=== PATIENT | female | born 1995 | race Caucasian/White ===

== ENCOUNTER 2020-04-21 11:58 | Emergency (ER) | payer OTHER, SELFPAY ==
[2020-04-21 12:10] VITALS: BP 116/71; PULSE 87; RESP 18; TEMP 36.6; O2SAT 98
--- NOTE | 2020-04-21 12:25 | ED.SKABFB ---
HPI - Skin/Abscess/Foreign Bdy General Chief complaint: Skin/Abscess/Foreign Body Stated complaint: breast pain Time Seen by Provider: 04/21/20 12:15 Source: patient and RN notes reviewed Mode of arrival: ambulatory Limitations: no limitations History of Present Illness HPI narrative: Patient presents today complaining of a rash to the left breast since last night. Denies itching or pain. She reports some generalized bilateral breast pain over the past 2 days she has cut down on her milk pumping. She has tried no OTC treatment prior to arrival. Related Data Home Medications Medication Instructions Recorded Confirmed No Home Medications 04/21/20 04/21/20 Allergies Allergy/AdvReac Type Severity Reaction Status Date / Time acetaminophen [From NyQuil] Allergy Itching Verified 04/21/20 13:00 dextromethorphan Allergy Itching Verified 04/21/20 13:00 [From NyQuil] doxylamine [From NyQuil] Allergy Itching Verified 04/21/20 13:00 ibuprofen Allergy Itching Verified 04/21/20 13:01 [From DayQuil Sinus Pressure/Pain] pseudoephedrine [From NyQuil] Allergy Itching Verified 04/21/20 13:00 Review of Systems Review of Systems: Narrative: CONSTITUTIONAL: Denies body aches, fever, chills, or sweats. EYES: Denies visual changes, redness, or discharge. ENT: Denies rhinorrhea, congestion, sore throat, or otalgia. CARDIOVASCULAR: Denies chest pain, palpitations, or edema. RESPIRATORY: Denies cough or dyspnea. GASTROINTESTINAL: Denies abdominal pain, nausea, vomiting, or diarrhea. GENITOURINARY: Denies dysuria or hematuria. SKIN: Denies iitching, or wounds. Bilateral breast pain, left breast rash MUSCULOSKELETAL: Denies back pain, joint pain, or myalgia. NEUROLOGIC: Denies headache, numbness, tingling, or weakness. PSYCH: Denies depression or anxiety. [facility] Past Medical History Medical History (Updated 04/21/20 @ 12:28 by Perla Allison, [facility], ) PCOS (polycystic ovarian syndrome) Family History Family History Other Unknown family medical history Social History Social History Smoking status: Never smoker Second hand tobacco smoke exposure: No Substance use: never Spiritual care concerns: No Comments At time of signature, I have reviewed and agree with nursing past medical, surgical, social and family history unless otherwise noted. Please see nursing chart for further information. There is no relevant family history pertinent to the presenting complaint Exam Narrative: Exam Narrative: GENERAL: Well-appearing, well-nourished, and in no acute distress. HEAD: Normocephalic, atraumatic. EYES: EOMI. No redness or drainage. Conjunctivae normal. ENT: Mucous membranes pink and moist. NECK: Normal AROM. CHEST: No respiratory distress. 3 cm round area of faintly erythematous maculopapular rash to the left upper quadrant of the area of the areola and surrounding skin. Nontender. No induration or fluctuance. Right breast normal. No nipple discharge bilaterally. EXTREMITIES: Normal range of motion. No edema. SKIN: Warm, dry, no rash. Capillary refill normal. Normal skin turgor. NEURO: No focal deficits. Alert and oriented x3. Gait steady. PSYCH: Normal affect. No signs of depression or anxiety. Course Vital Signs Vital signs: Vital Signs Temperature 97.8 F 04/21/20 12:10 Pulse Rate 87 04/21/20 12:10 Respiratory Rate 18 04/21/20 12:10 Blood Pressure 116/71 04/21/20 12:10 Pulse Oximetry 98 04/21/20 12:10 Temperature 97.8 F 04/21/20 12:10 Pulse Rate 87 04/21/20 12:10 Respiratory Rate 18 04/21/20 12:10 Blood Pressure 116/71 04/21/20 12:10 Pulse Oximetry 98 04/21/20 12:10 Reviewed MDM - Skin/Abscess/Foreign Bdy Differential Diagnosis Differential diagnosis: Likely abscess of skin or subcutaneous tissue, urticaria, herpes zoster, al
== END 2020-04-21 12:30 | disposition home or self-care (01) ==
PROVIDERS: Emergency Provider Nurse Practitioner; PCP Physician Assistant
DX: L30.9 Dermatitis, unspecified (principal); E28.2 Polycystic ovarian syndrome
CPT/HCPCS: 99211; G0463

== ENCOUNTER 2023-08-02 11:40 | Observation (INO) | payer BC, OTHER, SELFPAY ==
[2023-08-02 12:11] VITALS: BP 110/64; PULSE 122; RESP 18; TEMP 36.5; BMI 38.3
[2023-08-02 12:28] LABS: Appearance Urine Clear (Clear); Bacteria Urine Rare /hpf; Bilirubin Urine Negative (Negative); Blood Urine Negative (Negative); Color Urine Yellow (Yellow); Glucose Urine UA Negative (Negative); Ketones Urine Negative (Negative); Leukocyte Esterase Ur Trace LEU/UL (Negative); Nitrate Urine Negative (Negative); Non Pathogenic Casts 0-2; Protein Urine 1+ mg/dL (Negative); RBC Urine 0-2 /hpf (0-2); Squamous Epithelial Cell Urine Moderate /hpf (Few); Urobilinogen Urine 0.2 mg/dL (<2.0)
[2023-08-02 12:30] VITALS: BP 111/67; PULSE 118
[2023-08-02 12:30] LABS: Add Urine Microscopic? YES
--- NOTE | 2023-08-02 12:33 | OBADM ---
This patient, Kitty Montilla, admitted to the OB room 116 for observation. Patient/family oriented to hospital policies and general routines including ID bracelet, bed and alarms, visiting hours, pain management, procedures, bathroom and other care routines, personal items, smoking policy, room service/diet, and visiting hours. Patient/Family are encouraged to report perceived risks to care and to ask questions if they do not understand what they are told or what they should do.
[2023-08-02 13:00] VITALS: BP 97/50; PULSE 114
[2023-08-02] MEDS: CYCLOBENZAPRINE HCL 10 MG TABLET PO (13:14)
--- NOTE | 2023-08-05 07:56 | PM.OBTRLD ---
OB - Triage/Final Diagnosis Visit Information Date of evaluation: 08/02/23 Reason for evaluation: threatened labor (back pain) Comments/Additional reasons for admission: I have assessed the risk for this patient, Kitty Montilla, and determined that she would benefit from observation care. Evaluation Laboratory results: Laboratory Tests 08/02/23 12:15 Urine Color Yellow Urine Appearance Clear Urine pH 7.0 Ur Specific Cherry Log 1.010 Urine Protein 1+ H Urine Glucose (UA) Negative Urine Ketones Negative Ur Blood (Man) Negative Urine Nitrate Negative Urine Bilirubin Negative Urine Urobilinogen 0.2 Leukocyte Esterase Rfl Trace H Urine RBC 0-2 Urine WBC 6-10 H Ur Squamous Epith Cells Moderate Urine Bacteria Rare Urine Casts 0-2 Comments: Tracing reassuring. No evidence of labor.
== END 2023-08-02 14:17 | disposition home or self-care (01) ==
PROVIDERS: Advanced Practice Midwife; Admitting Provider Obstetrics & Gynecology; PCP Physician Assistant; Visit Provider Obstetrics & Gynecology
DX: O47.03 False labor before 37 completed weeks of gestation, third trimester (principal); Z3A.32 32 weeks gestation of pregnancy
CPT/HCPCS: 81001; 87086; A9270; G0378; G0379

== ENCOUNTER 2023-09-21 15:45 | Outpatient (CLI) | payer BC, SELFPAY ==
[2023-09-21 16:18] LABS: Hemoglobin 10.6 g/dL (12.0-15.0); Mean Corpuscular HGB Conc 31.2 g/dl (32-36); Mean Corpuscular Hemoglobin 25.1 pg (26-34); Mean Corpuscular Volume 80.6 fl (80-100); Mean Platelet Volume 12.1 fl (7.4-10.4); Platelet Count Result 227 k/mm3 (150-375); Red Blood Count 4.22 M/mm3 (4.2-5.4); Red Cell Distribution Width 15.6 % (11.5-14.5); White Blood Count 8.8 K/mm3 (4.5-10.0)
[2023-09-22 13:05] LABS: Rapid Plasma Reagin Non-Reactive (NonReactive)
== END 2023-09-21 15:46 | disposition home or self-care (01) ==
LOC: ANHLAB 15:47
PROVIDERS: PCP Physician Assistant; Visit Provider Obstetrics & Gynecology
DX: Z01.818 Encounter for other preprocedural examination (principal)
CPT/HCPCS: 36415; 85027; 86592; 86850; 86900; 86901

== ENCOUNTER 2023-09-22 09:32 | Inpatient (IN) | payer BC, SELFPAY ==
[2023-09-22] VITALS (64 sets, daily range): BP systolic 91–137; BP diastolic 50–100; PULSE 27–151; RESP 15–20; TEMP 36.2–37.2; O2SAT 73–100; BMI 38.9
--- NOTE | 2023-09-22 09:59 | PC.NURSE ---
Ok to give Zofran earlier than ERAS protocol per anesthesia
[2023-09-22] MEDS: ONDANSETRON INJ 4 MG/2 ML VIAL IV PUSH (10:15)
[2023-09-22] MEDS: ACETAMINOPHEN 500 MG TABLET 1000 MG PO (10:15)
[2023-09-22] MEDS: LACTATED RINGERS 1,000 ML 125 ML IV CONT ×2 (10:26→12:29)
--- NOTE | 2023-09-22 10:32 | ADMGEN ---
This patient, Kitty Montilla, was admitted to Labor/Delivery/Recovery 120-00. Patient/family oriented to hospital policies and general routines including ID bracelet, bed and alarms, visiting hours, pain management, procedures, bathroom and other care routines, personal items, smoking policy, room service/diet, and visiting hours. Information on how to activate the Rapid Response Team has been discussed. Patient/Family are encouraged to report perceived risks to care and to ask questions if they do not understand what they are told or what they should do.
--- NOTE | 2023-09-22 11:39 | PM.IMHP ---
H&P: HPI History of Present Illness Date/Time: 09/22/23 11:39 Chief Complaint: Here for c section. Narrative: 27 y/o at 39 2/7 weeks with prior , here for repeat . Good movement. GBS pos. 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 Review of Systems Review of Systems: All systems reviewed & are unremarkable except as noted in HPI and below PMFSH Past Medical History Medical History (Updated 09/22/23 @ 11:42 by Austin Pendleton MD) PCOS (polycystic ovarian syndrome) Surgical History Surgical History (Updated 09/22/23 @ 11:42 by Austin Pendleton MD) History of delivery Family History Family History Other Unknown family medical history Social History Social History Smoking status: Never smoker Second hand tobacco smoke exposure: No Substance use: never Do You Feel Safe in your Home?: Yes Lack of Transportation: No Lack of Food: Never True Current Housing: I Have Housing Concerned About Future Housing: No Difficulty Paying Gas/Electric Bills: No Difficulty Paying for Meds: No Currently Unemployed: No Education: Bachelor's Degree Difficulty w/ Childcare or Family Care: No Spiritual care concerns: No Meds Home Medications and Allergies Home Medications Medication Instructions Recorded Confirmed Type vit no.95-ferrous 1 tablet PO DAILY 08/02/23 09/14/23 History fumarate 28 mg-folic acid 800 mcg tablet () Allergies Allergy/AdvReac Type Severity Reaction Status Date / Time dextromethorphan Allergy Itching Verified 09/22/23 10:29 [From NyQuil] doxylamine [From NyQuil] Allergy Itching Verified 09/22/23 10:29 pseudoephedrine [From NyQuil] Allergy Itching Verified 09/22/23 10:29 Vital Signs Vital Signs - 24 hr 09/22/23 10:00 09/22/23 10:15 09/22/23 10:31 Pulse Rate 97 99 92 Blood Pressure 130/79 137/73 126/75 Oxygen Delivery 09/22/23 10:45 09/22/23 11:00 09/22/23 11:15 Pulse Rate 81 85 78 Blood Pressure 120/69 115/72 115/71 Oxygen Delivery 09/22/23 11:30 09/22/23 10:32 Pulse Rate 74 Blood Pressure 110/60 Oxygen Delivery Room Air Exam Const: Orientation/consciousness: patient oriented x3 Other: Well-developed, well-nourished female in no acute distress. Neck: Thyroid: thyroid normal Lymphatic: no lymphadenopathy noted (in neck, axilla or inguinal nodes) Resp: Effort & Inspection: normal respiratory effort Auscultation: clear to auscultation bilaterally Cardio: Rate: regular rate Rhythm: regular rhythm Heart sounds: S1 normal heart sound present and S2 normal heart sound present GI: Other: ABD: Soft, nontender, nondistended, gravid. FHR auscultated. No guarding or rebound tenderness. No hepatosplenomegaly. : General: Yes no CVA tenderness Other: Cervix cl/th Back/Spine/Pelvis: Back: no CVA tenderness Skin: General skin exam: normal color and no rashes or lesions noted Neuro: General: patient oriented x3 Extrem: Other: Extremities: nontender with no edema Psych: Mental Status: mental status grossly normal Affect: normal affect Assessment and Plan Assessment and plan (1) Term : Code(s): Z34.90 - Encounter for supervision of normal , unspecified, unspecified trimester Status: Acute Assessment and Plan: A: IUP at 39 2/7 weeks with prior , desiring repeat. GBS pos. P: Offered repeat . She understands risks of surgery to include risks of anesthesia, risks of pain, infection, bleeding, blood products, thromboembolic phenomena and damage to adjacent structures such as bowel, bladder, ureters, blood vessels and nerves. She understands all these risks and elects to proceed with surgery. Plan Ancef preoperatively. (2) GBS (group B Streptococcus carrier), +RV
--- NOTE | 2023-09-22 11:53 | P.PNAN_ITS ---
Anes - Eval Pre Procedure Procedure: Operation Date: 09/22/23 12:00 Proposed Procedures p Repeat Section - Austin Pendleton MD Date/Time: 09/22/23 11:53 Surgeon: Helder Preop Diagnosis: Previous c section Pre Op Diagnosis: C/S Patient Data Age: 27 Gender: F Height: 1.65 m Weight: 106 kg Last Vital Signs Pulse 74 09/22/23 11:30 BP 110/60 09/22/23 11:30 O2 Del Method Room Air 09/22/23 10:32 Allergies Allergy/AdvReac Type Severity Reaction Status Date / Time dextromethorphan Allergy Itching Verified 09/22/23 10:29 [From NyQuil] doxylamine [From NyQuil] Allergy Itching Verified 09/22/23 10:29 pseudoephedrine [From NyQuil] Allergy Itching Verified 09/22/23 10:29 Home Medications Medication Instructions Recorded Confirmed Type vit no.95-ferrous 1 tablet PO DAILY 08/02/23 09/14/23 History fumarate 28 mg-folic acid 800 mcg tablet () Patient hx anesthesia problems: none Family hx anesthesia problems: none Results Review: All pre-operative results and documents have been reviewed as part of the pre- operative evaluation. [facility] Past Medical History Medical History (Updated 09/22/23 @ 11:56 by Pacheco Yanez Jr., CRNA) ADHD IBS (irritable bowel syndrome) Obesity PCOS (polycystic ovarian syndrome) Sciatica Term Surgical History Surgical History History of delivery Family History Family History Other Unknown family medical history Social History Social History Smoking status: Never smoker Second hand tobacco smoke exposure: No Substance use: never Do You Feel Safe in your Home?: Yes Lack of Transportation: No Lack of Food: Never True Current Housing: I Have Housing Concerned About Future Housing: No Difficulty Paying Gas/Electric Bills: No Difficulty Paying for Meds: No Currently Unemployed: No Education: Bachelor's Degree Difficulty w/ Childcare or Family Care: No Spiritual care concerns: No Exam Day of Procedure 09/22/23 11:53 Patient weight: obese
--- NOTE | 2023-09-22 12:24 | WPDANESEPPF ---
Anes - Initial Pre Proc Eval Procedure: Operation Date: 09/22/23 12:00 Proposed Procedures p Repeat Section - Austin Pendleton MD Date/Time: 09/22/23 12:24 Surgeon: Austin Pendleton MD Pre Op Diagnosis: C/S Patient Data Age: 27 Gender: F Height: 1.65 m Weight: 106 kg Last Vital Signs Pulse 81 09/22/23 12:16 BP 118/64 09/22/23 12:16 O2 Del Method Room Air 09/22/23 10:32 Allergies Allergy/AdvReac Type Severity Reaction Status Date / Time dextromethorphan Allergy Itching Verified 09/22/23 10:29 [From NyQuil] doxylamine [From NyQuil] Allergy Itching Verified 09/22/23 10:29 pseudoephedrine [From NyQuil] Allergy Itching Verified 09/22/23 10:29 Home Medications Medication Instructions Recorded Confirmed Type vit no.95-ferrous 1 tablet PO DAILY 08/02/23 09/14/23 History fumarate 28 mg-folic acid 800 mcg tablet () Patient hx anesthesia problems: none Family hx anesthesia problems: none Results Review: All pre-operative results and documents have been reviewed as part of the pre-operative evaluation. [facility] Past Medical History Medical History (Updated 09/22/23 @ 11:56 by Pacheco Yanez Jr., CRNA) ADHD IBS (irritable bowel syndrome) Obesity PCOS (polycystic ovarian syndrome) Sciatica Term Surgical History Surgical History History of delivery Family History Family History Other Unknown family medical history Social History Social History Smoking status: Never smoker Second hand tobacco smoke exposure: No Substance use: never Do You Feel Safe in your Home?: Yes Lack of Transportation: No Lack of Food: Never True Current Housing: I Have Housing Concerned About Future Housing: No Difficulty Paying Gas/Electric Bills: No Difficulty Paying for Meds: No Currently Unemployed: No Education: Bachelor's Degree Difficulty w/ Childcare or Family Care: No Spiritual care concerns: No Anes - Eval Final PreProcedure Day of Procedure 09/22/23 12:24 Patient weight: obese Heart: regular rate and rhythm Lungs: clear to auscultation Airway: Mallampati scale class II Neurological: alert and oriented Last oral intake: >/= 8 hours ASA classification: II Emergent: no Anesthetic plan: proceed Anesthesia type and monitoring: regional spinal Results Review: All pre-operative results and documents have been reviewed as part of the pre-operative evaluation. Pt reports some brief nausea and vomiting after epidural dosed for C section w previous delivery. Informed Consent: The patient's anesthetic plan and its attendant risks and benefits were discussed with the patient/family/POA. Questions were solicited and answers provided to the satisfaction of the patient/family/POA.
[2023-09-22] MEDS: FAMOTIDINE 20 MG/2 ML VIAL IV PUSH (12:39)
--- NOTE | 2023-09-22 12:41 | WPDHPUPDATE1 ---
History and Physical Update Update Date/Time: 09/22/23 12:41 History and Physical has been reviewed, including an updated exam of the patient. There are NO changes in the patient's condition. Risks, benefits, and alternatives have been discussed and questions answered. Patient agrees to proceed with procedure.
--- NOTE | 2023-09-22 13:58 | W.PM.OBCSD ---
OB - Delivery Note Procedure Delivery date: 09/22/23 Pre-op diagnosis: Positive Group B Strep (GBS) and Previous Delivery Post-op Diagnosis: Same Induction method: None Delivery monitor: External FHT and External Uterine Procedure Performed: Repeat Surgeon: Austin Pendleton MD Anesthesia type: Spinal Description of Procedure/Findings: Findings: Normal-appearing uterus, tubes and ovaries. Techniques: The patient was taken to the operating room where she was prepared and draped in the usual sterile fashion in dorsal supine position with a leftward tilt. She received cefazolin preoperatively. Spinal anesthesia was found to be adequate. A Pfannenstiel skin incision was made along the previous scar line and was carried through to the underlying layer of the fascia. The fascia was incised in the midline and the incision was extended laterally. The fascia was dissected free of the underlying rectus muscles. The rectus muscles were in the midline. The peritoneum was identified, tented up and entered sharply. The peritoneal incision was extended superiorly and inferiorly with good visualization of the bladder. The bladder blade was placed. The vesicouterine peritoneum was identified, tented up and entered sharply. The incision was extended laterally and the bladder flap was developed. The bladder blade was replaced. The uterus was then incised sharply in a transverse fashion along the lower uterine segment. The incision was extended laterally. The 's head was delivered atraumatically to the sterile field, followed by the body. The nose and mouth were bulb suctioned. After a delay, the cord was clamped and cut. The infant was handed off the field. Cord blood was collected. The placenta was removed manually and was passed off the field. The uterus was exteriorized and cleared of all clots and debris. The uterine incision was reapproximated using 0 Monocryl in a running, locked fashion. Excellent hemostasis resulted as did excellent reapproximation of the normal anatomy. The uterus was returned the abdomen. The pelvis was irrigated copiously with warmed normal saline. Rigorous hemostasis was assured. The fascial layer was reapproximated using 0 Vicryl in a running fashion. The skin was closed with a running, subcuticular stitch of 4 0 Vicryl. Dermaflex was applied externally. Sponge, lap, needle and instrument counts were correct. The patient was taken to the recovery room in stable condition. The infant went to the nursery in stable condition. I was present and scrubbed the entire procedure. Specimen: Yes (cord blood) Estimated Blood Loss: 520 Drains: Yes (chowdary) Packing: No Pathology: Yes (cord blood) Complications: None Condition: Stable Disposition: PACU [place] Baby Date of : 09/22/23 Time of : 13:17 Weeks of gestation at delivery: 39 Infant gender: Female Weight (pounds): 7 Weight (ounces): 2 presentation: vertex Placenta delivery description: Manual Removal and Normal Configuration Cord Vessel Description: 3 Vessels and Delayed Cord Clamping score one minute: 9 score five minutes: 9
--- NOTE | 2023-09-22 14:00 | PM.OBDSVD ---
DS: Admitting Diagnosis Discharge Date 09/24/23 Admitting Diagnosis IUP at 39 2/7 weeks Prior GBS colonization DS: Discharge Diagnosis Discharge Diagnosis (1) delivery delivered: Code(s): O82 - Encounter for delivery without indication Status: Acute (2) GBS (group B Streptococcus carrier), +RV culture, currently : Code(s): O99.820 - Streptococcus B carrier state complicating Status: Acute OB - DS: Summary OB Procedures : None OB Procedures Intrapartum: and GBS prophylaxis OB Procedures: : None Peripartum Data Procedures: Procedures Operation Date: 09/22/23 12:00 <No data on this case meets the specified criteria> Time Spent with Patient Time attestation: Total time spent providing and/or coordinating discharge services: Discharge Plan Discharge Attending physician on discharge: Austin Pendleton Discharging Clinician: Austin Pendleton Patient Disposition: Home, Self-Care Activity: may shower, may drive after 2 weeks and pelvic rest Diet: regular Wound Care Instructions: incision open to air Discharge Instructions: Call or return if temperature above 100.4? F, increased abdominal pain, increased vaginal bleeding or any new problems. Stand Alone Forms: General Discharge Information Follow-up/Referrals: Austin Pendleton MD [Physician] - 4 Weeks Discharge Medications: New ibuprofen 600 mg tablet 600 mg PO Q6H PRN (Reason: cramps) Qty: 30 0RF hydrocodone-acetaminophen 5-325 mg tablet 1 - 2 tablet PO Q6H PRN (Reason: pain) Qty: 30 0RF Continued PNV cmb#95-ferrous fumarate-FA [] 28 mg iron- 800 mcg Tablet 1 tablet PO DAILY Date of admission: 09/22/23 09:32 Primary Care Provider: AnivalRoss Admitting Provider: Austin Pendleton Attending physician on admission: Austin Pendleton Condition: Stable
[2023-09-22] MEDS: fentaNYL CITRATE INJ (*CRX) 100 MCG/2 ML VIAL 25 MCG IV PUSH ×2 (14:59→15:52)
[2023-09-22] MEDS: OXYTOCIN 30 UNITS/NS 500 ML 30 UNITS/500 ML BAG 125 UNITS IV CONT (16:00)
--- NOTE | 2023-09-22 16:44 | OBPPTRN ---
Patient transferred to post room # 281 via stretcher. Support person present. Oriented to unit, room, information board, rooming in, admission packet and security measures. Patient verbalizes understanding.
[2023-09-22] MEDS: DOCUSATE SODIUM 100 MG CAPSULE PO (17:24)
[2023-09-22] MEDS: HYDROcodone/acetaminophen (*CRX) 10-325 MG TABLET 1 TAB PO ×2 (17:24→23:40)
[2023-09-22] MEDS: ACETAMINOPHEN 325 MG TABLET 650 MG PO (17:25)
[2023-09-22] MEDS: KETOROLAC 15 MG/ML VIAL (*BKC) IV PUSH ×2 (17:27→23:40)
[2023-09-22] MEDS: HYDROcodone/acetaminophen (*CRX) 5-325 MG TABLET 1 TAB PO (20:50)
[2023-09-22] MEDS: DEXTROSE 5%/0.45% SOD CHL 1,000 ML 125 ML IV CONT (20:50)
[2023-09-23] MEDS: HYDROcodone/acetaminophen (*CRX) 10-325 MG TABLET 1 TAB PO ×3 (04:05→15:45)
[2023-09-23 04:15] VITALS: BP 112/65; PULSE 84; RESP 20; TEMP 37; O2SAT 97
[2023-09-23 05:18] LABS: Basophils Absolute Auto 0.1 K/mm3 (0.0-0.1); Basophils Percent Auto 0.6 % (0.2-1.2); Eosinophils Absolute Auto 0.1 K/mm3 (0-0.3); Eosinophils Percent Auto 1.2 % (0-4.4); Hematocrit 28.3 % (37.0-47.0); Hemoglobin 8.9 g/dL (12.0-15.0); Immature Granulocyte Absolute 0.03 K/mm3 (0.00-0.031); Immature Granulocyte Percent A 0.4 % (0-0.5); Lymphocytes Absolute Auto 1.49 K/mm3 (0.9-3.2); Mean Corpuscular HGB Conc 31.4 g/dl (32-36); Mean Corpuscular Hemoglobin 25.6 pg (26-34); Mean Corpuscular Volume 81.3 fl (80-100); Mean Platelet Volume 12.5 fl (7.4-10.4); Monocytes Absolute Auto 0.8 K/mm3 (0.1-0.6); Monocytes Percent Auto 9.2 % (2.6-8.5); Neutrophils Absolute Auto 5.9 K/mm3 (1.3-6.7); Neutrophils Percent Auto 70.6 % (45.5-73.1); Platelet Count Result 169 k/mm3 (150-375); Red Blood Count 3.48 M/mm3 (4.2-5.4); Red Cell Distribution Width 15.9 % (11.5-14.5); White Blood Count 8.3 K/mm3 (4.5-10.0)
--- NOTE | 2023-09-23 07:27 | WPDANLDPN2 ---
Anes-Prog Note L&D Date/Time: 09/23/23 07:27 Comfortable throughout: section Neuraxial method: spinal Epidural/Spinal procedure site: clean & non-tender Neuro status: Neuro function grossly intact. Cardiovascular status: normal Respiratory status: normal Airway patency: baseline Mental status: baseline Post-Op hydration status: normal Vital Signs: Last Vital Signs Temp 37.0 C 09/23/23 04:15 Pulse 84 09/23/23 04:15 Resp 20 09/23/23 04:15 BP 112/65 09/23/23 04:15 Pulse Ox 97 09/23/23 04:15 O2 Del Method Room Air 09/22/23 16:05 Pain score (VAS): 210 I/O: Intake & Output 09/22/23 09/22/23 09/23/23 15:59 23:59 07:59 Intake Total 256.3 0 3000 Output Total 216 718 1975 Balance -263.7 -250 450 Post-procedural complaints: none Patient feedback: Patient satisfied with anesthetic care.
--- NOTE | 2023-09-23 07:28 | WPDANLDNPN2 ---
Anes-Prog Note L&D-Neuraxial Date/Time: 09/23/23 07:28 Neuraxial medications: intrathecal PF morphine Opiod-related complaints: pruritis mild, no treatment Patient feedback: Patient satisfied with post-operative pain management.
[2023-09-23 07:50] VITALS: BP 98/54; PULSE 91; RESP 16; TEMP 36.6; O2SAT 99
[2023-09-23] MEDS: KETOROLAC 15 MG/ML VIAL (*BKC) IV PUSH ×2 (08:25→14:44)
[2023-09-23] MEDS: DOCUSATE SODIUM 100 MG CAPSULE PO ×2 (08:26→15:45)
[2023-09-23] MEDS: SIMETHICONE 80 MG TAB.CHEW PO ×2 (08:27→12:35)
[2023-09-23] MEDS: MULTIVIT/MIN/PREN/FOL AC/IRON TABLET 1 TAB PO (08:27)
[2023-09-23] MEDS: POLYSACCHARIDE IRON COMPLEX 150 MG CAPSULE PO ×2 (08:27→15:45)
[2023-09-23] MEDS: LANOLIN (LANSINOH) 7.5 GM CREAM 1 APPLIC TOPICAL (08:27)
--- NOTE | 2023-09-23 08:58 | PM.OBPNVD ---
OB - PN: Subj Subjective Date/time seen: 09/23/23 08:58 Narrative: Pain OK. Tolerating diet. OB - PN: Obj Data Labs 09/23/23 03:45 Labs: Laboratory Results - last 24 hr 09/23/23 03:45 WBC 8.3 RBC 3.48 L Hgb 8.9 L Hct 28.3 L MCV 81.3 MCH 25.6 L MCHC 31.4 L RDW 15.9 H Plt Count 169 MPV 12.5 H Immature Gran % (Auto) 0.4 Neut % (Auto) 70.6 Lymph % (Auto) 18.0 L [place] % (Auto) 9.2 H Eos % (Auto) 1.2 Baso % (Auto) 0.6 Lymph # (Auto) 1.49 [place] # (Auto) 0.8 H Eos # (Auto) 0.1 Baso # (Auto) 0.1 Abs Immat Gran (auto) 0.03 Absolute Neuts (auto) 5.9 Absolute Nucleated RBC 0.000 Nucleated RBC % 0.0 OB - PN A/P Plan day: 1 Comments: A: POD#1, doing well. P: Routine care. Exam Narrative: AVSS I/O OK ABD soft, nontender, fundus firm. Incision c/d/i. EXT nontender
[2023-09-23] MEDS: LIDOCAINE 5% PATCH 1 PATCH TRANSDERM (10:12)
--- NOTE | 2023-09-23 12:28 | PC.NURSE ---
[id number] Introductions were made, then consulted with patient to assess needs related to after a request. Mother led the conversation with her?plans to feed?her , the?experience so far and a history of a bad experience with a LC with her first child. Mother requested RN LC not to touch her or her related to that experience. Encouraged understanding of the benefits of skin to skin (demonstrating unwrapping and placing upright on her chest), stimulating with massage touch, changing positions to encourage wakefulness, how to watch for early feeding cues, responsive feeding, feeding on demand (aiming for 8-12 times in 24 hours, about every 2-3 hours), milk production, hand expression, building/maintaining a milk supply, duration of feeding, signs of adequate intake/output and how to record on the feeding sheet. Demonstrated a hand expression technique using a tool to mother that might produce more colostrum and mother demonstrated understanding. Mother works well with her infant with encouragement and education. Mother is attempting to latch infant to her right breast and is pumping her left breast with a portable personal pump. Encouraged mother to switch to the left breast after she hand expressed large drops of colostrum. Mother independently latched her infant to the left breast in cradle position. Education given to the mother of how to visualize the suckling (with good rocking jaw motion), swallows (dropping of the lower jaw) and how to listen for drinking at the breast (the ka sound)which demonstrated. was able to maintain latch without pain to mother protecting the nipple with optimal positioning and latching. Mother voiced understanding of skin to skin, stimulating with massage touch, responsive feedings, hand expressed colostrum, talking to infant to encourage if it has been 2 -2.5 hours since the start of the last , to call if infant does not latch, or if there is discomfort with . Resources used for education were facilitated with the tool. Inpatient/outpatient resources provided with name written on the communication board. Parents voiced understanding of information, demonstrated learning and will call if there is a request for assistance. Reported to the Primary RN.
[2023-09-23] MEDS: HYDROcodone/acetaminophen (*CRX) 5-325 MG TABLET 1 TAB PO ×2 (12:35→20:51)
[2023-09-23] MEDS: ACETAMINOPHEN 325 MG TABLET 650 MG PO (14:44)
[2023-09-23 19:45] VITALS: BP 113/60; PULSE 102; RESP 16; TEMP 36.3; O2SAT 99
[2023-09-23] MEDS: IBUPROFEN 600 MG TABLET PO (20:49)
[2023-09-24] MEDS: HYDROcodone/acetaminophen (*CRX) 5-325 MG TABLET 1 TAB PO ×3 (02:05→19:45)
[2023-09-24] MEDS: IBUPROFEN 600 MG TABLET PO ×3 (04:57→17:03)
--- NOTE | 2023-09-24 08:42 | PM.OBPNVD ---
OB - PN: Subj Subjective Date/time seen: 09/24/23 08:42 Narrative: Pain OK. Tolerating diet. Would like to go home. OB - PN: Obj Data Labs 09/23/23 03:45 OB - PN A/P Plan Comments: A: POD#2, doing well. P: Home to f/u 4 weeks. Exam Narrative: AVSS ABD soft, nontender, fundus firm. Incision c/d/i. EXT nontender
[2023-09-24 08:50] VITALS: BP 124/74; PULSE 103; RESP 18; TEMP 37; O2SAT 98
[2023-09-24] MEDS: POLYSACCHARIDE IRON COMPLEX 150 MG CAPSULE PO ×2 (09:32→17:02)
[2023-09-24] MEDS: MULTIVIT/MIN/PREN/FOL AC/IRON TABLET 1 TAB PO (09:33)
[2023-09-24] MEDS: DOCUSATE SODIUM 100 MG CAPSULE PO ×2 (09:33→17:02)
[2023-09-24] MEDS: SIMETHICONE 80 MG TAB.CHEW PO ×3 (09:33→17:02)
[2023-09-24] MEDS: ACETAMINOPHEN 325 MG TABLET 650 MG PO ×2 (11:07→17:03)
--- NOTE | 2023-09-24 12:53 | PC.NURSE ---
[id number] Consulted with mother concerning needs and she shared her ability to independently latch infant optimally without pain. Mother is feeding appropriately for growth of infant and understands stimulating to eat if needed. Infant has had appropriate feedings in the last 24 hours meets the outcomes for weight, output, blood sugar and jaundice at this time with exception to a period of 6 hours without . Discussed concerns with weight, blood sugar, jaundice and the milk supply when misses two feedings. Reminded parents to breastfeed infant on demand not letting infant go past 3 hours during the day and 4 hours at night one time in a 24 hour period. Mother has been attempting to latch to the right breast and was unable to get to wake up so, she unwrapped and undressed , then mother independently latched her infant to the right breast with cradle positioning. Then after infant detached mother latched to the left breast. Infant demonstrated rocking jaw motion, dropping of the jaw indicating swallowing about every 3rd suck. Mother denies pain and nipples are not misshaped. Mother acknowledges the difference of non-nutritive vs nutritive . Reinforced understanding of milk production, transition of milk, signs of adequate intake, transition of stool, prevention/relief of engorgement, plugged ducts, mastitis, responsive watching for feeding cues, the different methods of stimulating to breastfeed 1-3 hours after the start of the last feeding, community resources, and when to call a provider using the resource of the feeding sheet along with the mom and baby guide. Mother voiced understanding of the information shared, is confident to continue effectively her at home, when to call for assistance, denies any additional assistance or education at this time. Reported to the Primary RN. Reported to RN that infant had a blood sugar checked after Information Technology Officer assessment and resulted 51mg/dl. Dr. Cardoso ordered gel and formula feeding. PP blood sugar resulted 84mg/dl. [id number] Purposefully rounded to assess for concerns and mothers mental health after the supplementation as that is not something she wanted to do. Mother is a terms with the needs of the baby being met. We reviewed frequent and hand expression. Mother is pumping with her hands free pump and is able to collect more milk with hand expression. A cup was provided to collect breast milk. Mother demonstrated a better technique of removing more milk after education reviewed. 1130 - Mother is [id number] with her requesting a blood sugar prior to . Blood sugar results at 80mg/dl. Mother encouraged to call for assistance with , difficulty waking to breastfeed, or pain and no swallowing with . Reported results to the Primary RN.
[2023-09-24] MEDS: HYDROcodone/acetaminophen (*CRX) 10-325 MG TABLET 1 TAB PO (12:59)
--- NOTE | 2023-09-24 15:05 | PC.NURSE ---
1315 - Purposefully rounded and mother shared she breastfed her infant independently for 40 min without pain at noon. Encouraged mother to practice [id number] and offer every 2 hours while she is awake. 1400 - Purposefully rounded to assess for needs. Family is taken pictures and mother is ready for 's blood sugar to be checked for . Blood sugar results at 48mg/dl and Primary RN notified. Serum drawn. Primary RN is present with gel and mother has EBM to feed to her for supplementing.
[2023-09-24 20:44] VITALS: BP 126/70; PULSE 99; RESP 18; TEMP 36.4; O2SAT 99
[2023-09-24] MEDS: LIDOCAINE 5% PATCH 1 PATCH TRANSDERM (20:54)
[2023-09-25] MEDS: HYDROcodone/acetaminophen (*CRX) 5-325 MG TABLET 1 TAB PO (03:15)
[2023-09-25] MEDS: DOCUSATE SODIUM 100 MG CAPSULE PO (08:04)
[2023-09-25] MEDS: ACETAMINOPHEN 325 MG TABLET 650 MG PO (08:04)
[2023-09-25] MEDS: SIMETHICONE 80 MG TAB.CHEW PO (08:04)
[2023-09-25] MEDS: IBUPROFEN 600 MG TABLET PO (08:04)
[2023-09-25] MEDS: POLYSACCHARIDE IRON COMPLEX 150 MG CAPSULE PO (08:04)
[2023-09-25] MEDS: MULTIVIT/MIN/PREN/FOL AC/IRON TABLET 1 TAB PO (08:04)
--- NOTE | 2023-09-25 08:05 | PC.NURSE ---
Patient instructed on view the discharge video Mother & Baby Care, The First Two Weeks online. Patient was given the opportunity and encouraged to ask questions. Patient verbalized understanding of information shared and has been given the mother/baby guide for home reference.
[2023-09-25 08:07] VITALS: BP 129/80; PULSE 96; RESP 16; TEMP 37.1; O2SAT 99
--- NOTE | 2023-09-25 08:45 | PM.OBPNVD ---
OB - PN: Subj Subjective Date/time seen: 09/25/23 08:45 Narrative: Pain OK. Tolerating diet. Would like to go home. OB - PN: Obj Data Labs 09/23/23 03:45 OB - PN A/P Plan day: 3 Comments: A: POD#3, doing well. P: Home to f/u 4 weeks. Exam Narrative: AVSS ABD soft, nontender, fundus firm. Incision c/d/i. EXT nontender
--- NOTE | 2023-09-25 10:26 | PC.NURSE ---
[id number] Consulted with mother concerning needs and she shared her ability to independently latch infant optimally without pain. Mother is feeding appropriately for growth of infant and understands stimulating to eat if needed. Mothers milk is starting to come to volume as she is and pumping to stimulate milk production. We discussed her milk supply as it relates to PCOS, however; mother has made plenty of milk in the past for their first child. has had appropriate feedings in the last 24 hours meets the outcomes for weight, output, blood sugar and jaundice at this time. Reinforced understanding of milk production, transition of milk, signs of adequate intake, transition of stool, prevention/relief of engorgement, plugged ducts, mastitis, responsive watching for feeding cues, the different methods of stimulating infant to breastfeed 1-3 hours after the start of the last feeding, community resources, and when to call a provider using the resource of the feeding sheet along with the mom and baby guide. Mother voiced understanding of the information shared, is confident to continue effectively her at home, when to call for assistance, denies any additional assistance or education at this time.
[2023-09-26 09:25] VITALS: BP 113/44; PULSE 95; RESP 18; TEMP 36.7; O2SAT 98
== END 2023-09-25 11:00 | disposition home or self-care (01) | DRG 788 ==
LOC: ANHLDR 14:01 → ANHOB2 17:34
PROVIDERS: Admitting Provider Obstetrics & Gynecology; PCP Physician Assistant; Visit Provider Obstetrics & Gynecology
PROC: 10D00Z1 Extraction of Products of Conception, Low, Open Approach (ICD-10-PCS; CPT 59514; principal; 2023-09-22 12:00)
DX: O34.219 Maternal care for unspecified type scar from previous cesarean delivery (principal); O99.824 Streptococcus B carrier state complicating childbirth; O99.284 Endocrine, nutritional and metabolic diseases complicating childbirth; E28.2 Polycystic ovarian syndrome; O35.2XX0 Maternal care for (suspected) hereditary disease in fetus, not applicable or unspecified; Z14.1 Cystic fibrosis carrier; Z3A.39 39 weeks gestation of pregnancy; Z37.0 Single live birth
CPT/HCPCS: 36415; 85025; A9270; J1885; J2274; J2371; J2405; J2590; J3010; J7120

== ENCOUNTER 2024-06-18 03:26 | Emergency (ER) | payer BC, SELFPAY ==
[2024-06-18 03:34] VITALS: BP 111/66; PULSE 93; RESP 14; TEMP 36.5; O2SAT 99
[2024-06-18 06:46] VITALS: BP 122/66; PULSE 86; RESP 14; TEMP 36; O2SAT 100
--- OUTSIDE RECORDS SUMMARY | 2024-06-25 04:15 | XMS_ITS | Encounter Summary ---
Author Organization [facility] Healthcare Address [address] [place] [address] Care Team Providers Care Service Aide Name Role Phone Ross Florian Primary Care Provider [phone] Reason for Visit * Reason Comments Rash Pt has come in today with C/O rash on both breast, wrist, elbow, under buttocks, inner thigh. Pt states this rash came about two weeks ago. She noticed breast pain last night, feverish, cough, congestion and runny nose. Other symptoms started about four days ago. Encounter Details Date Type Department Care Team (Late st Contact Info) Description 04/24/2024 6:30 PM BRAND MANAGER Office Visit [facility] [address] [place] [id number] Amanda Stone NP [address] [facility] [place] [address] Dermatitis (Primary Dx); Viral URI Social History Tobacco Use Types Packs/Day Years Used Date Smoking Tobacco: Never Assessed Comments Unknown Sex and Gender Information Value Date Recorded Sex Assigned at Not on file Legal Sex Female 9:50 AM BRAND MANAGER Gender Identity Not on file Sexual Orientation Not on file documented as of this encounter Last Filed Vital Signs Vital Sign Reading Time Taken Comments Blood Pressure 112/74 04/24/2024 6:28 PM BRAND MANAGER Pulse 86 04/24/2024 6:28 PM BRAND MANAGER Temperature 37 ??C (98.6 ??F) 04/24/2024 6:28 PM BRAND MANAGER Respiratory Rate 18 04/24/2024 6:28 PM BRAND MANAGER Oxygen Saturation 98% 04/24/2024 6:28 PM BRAND MANAGER Inhaled Oxygen Concentration - - Weight 108 kg (238 lb) 04/24/2024 6:28 PM BRAND MANAGER Height - - Body Mass Index 39.61 07/16/2023 12:02 PM BRAND MANAGER documented in this encounter Patient Instructions * Patient Instructions* Amanda Stone MANAGER INTEGRITY - 04/24/2024 6:30 PM BRAND MANAGER Research has proven that unless you are running a fever or symptoms start to improve then get worseagain, sinus infections are typically viral until days 9- 10. This means they will not respond to antibiotics. You have been diagnosed with a VIRAL INFECTION. -Viral infections do not improve with antibiotics. -Viral symptoms can linger from 7-14 days -The color of drainage or phlegm does not always reflect the need for an antibiotic, even during a viral illness it is normal for drainage to change from yellow to green at times. Symptomatic treatments include: Increase Vitamins C,D , Zinc -Over the counter loratadine (Claritin) or cetirizine (Zyrtec) to reduce secretions (any antihistamines can interfere with breast milk production prior to established breast-feeding routine, Benadrylis more ikely to cause this than Claritin or Zyrtec.. -Acetaminophen (Tylenol) for pain or fever. -The use of hypertonic saline to irrigate nasal passageways can be helpful. Over the counter systems include Neti Pot and Nasopure. Use with distilled water -Salt water gargles and throat lozenges can be helpful for sore throat. -Cough drops and throat lozenges -Increase decaffeinated fluids -Sleep with head of bed raised (to promote drainage) -Warm packs to face to facilitate sinus drainage -Avoid spreading the virus by remaining at home and away from others until you are fever-free (temperature below 100) for 24 hours, without the aid of fever reducers. Good handwashing and covering your mouth when coughing are also important. -To prevent spreading the illness to others cover your sneeze and cough into your arm and not your hand, don't allow others to eat or drink with the same utensils or glass, and use hand computer repairer before touching people or common surfaces. If you are not improving or worsening in the next 5-7 days you must RETURN to the clinic, go to your PCP, or Urgent Care/ER to be SEEN and reevaluated. No further prescriptions or refills will be given by phone without another evaluation. SERIOUS COMPLICATIONS AFTER AN UPPER RESPIRATORY ILLNESS CAN OCCUR. CALL 911 OR GO TO ER WITH ANY DIFFICULTY BREATHING, SHORTNESS OF BREATH, INCREASED WORK OF BREATHING, DIFFICULTY TAKING A DEEP BREATH, ANY CHANGES IN THE COLOR OF YOUR SKIN (BLUISH OR PALE COLOR), WORSENING OF COUGH, OR CONSISTENT FEVERS, INABILITY TO KEEP FLUIDS DOWN, DECREASED ABILITIY TO URINATE, INCREASED HEADACHE, OR NEW NECK STIFFNESS. VIRAL ILLNESSES LEAVE YOU MORE VULNERABLE TO DEVELOP A BACTERIAL INFECTION AND ANY OF THESE SIGNS AND SYMPTOMS SHOULD BE TAKEN SERIOUSLY. Complete the prednisone as directed Keep your skin cool & wear loose clothing to avoid becoming hot, which could increase the itching. If your rash is not getting better after finishing the steroids, please RTC or follow up w PCP If your symptoms worsen- go to ER PREDNISONE OR MEDROL DOSEPAK: Take this medication with food If taken too late, this medication can cause sleeplessness. Common side effects include increased blood pressure, increased water and sodium retention, increased weight gain, mood changes, and increased blood sugar. Do not take NSAIDS while taking this medication. This includes aspirin, Aleve, Ibuprofen, Naproxen,Midol, Advil, or any medications containing Ibuprofen or aspirin. TAKE ANTACIDS 2 HOURS APART FROM PREDNISONE OR METHYLPREDNISOLONE Go to the ER or call 911 if you experience new onset fevers, personality changes, chest pain, uncontrollable blood sugars (in diabetics), stomach pain, severe generalized muscle pain, uncontrolled blood pressure, severe headaches, changes in vision, or seizures. D MANAGER documented in this encounter Ordered Prescriptions Prescription Sig Dispense Quantity Refills Last Filled Start Date End Date triamcinolone (KENALOG) 0.1 % creamIndications:D ermatitis Apply topically 2 (two) times a day 30 g 04/24/2024 predniSONE (DELTASONE) 20 mg tabletIndications: Dermatitis Take 2 tablets (40 mg) by mouth daily for 5 days 10 tablet 04/24/2024 documented in this encounter Progress Notes * Amanda Stone NP - 04/24/2024 6:30 PM CST Images from the original note were not included. Subjective/Objective Patient ID: Kitty Montilla is a 28 y.o. female. Chief Complaint Rash (Pt has come in today with C/O rash on both breast, wrist, elbow, under buttocks, inner thigh.Pt states this rash came about two weeks ago. She noticed breast pain last night, feverish, cough, congestion and runny nose. Other symptoms started about four days ago. ) Pt presents to with c/o rash to both breast, wrist, elbow, under buttocks, inner thigh for the past 2 weeks. It seems to be getting worse. She started using scent beads about 2 weeks before the rash began. She stopped them when she noticed the rash and the rash has continued to worsen. The rash is itchy, no pain. She has had cough, congestion, runny nose for the past 4 days. Those symptoms arebetter today. She has some chills last night but that is better now too. OTC meds tried-none. Denies SOB or fever. Pt is drinking plenty of fluids. Family members have been sick. She also noticed some breast pain this morning in both breasts. It is better this afternoon. She does not feel any clogged ducts. She is nursing her 7-month-old baby. Patient states baby nor other family members have a rash. Baby does not go to daycare. Rash Review of Systems Skin: Positive for rash. All systems reviewed and are negative or non contributory for this patient's presentation today other than as stated in the HPI. Physical Exam Vitals and nursing note reviewed. Constitutional: General: She is not in acute distress. Appearance: She is not ill-appearing or toxic-appearing. HENT: Head: Normocephalic. Right Ear: Tympanic membrane, ear canal and external ear normal. Left Ear: Tympanic membrane, ear canal and external ear normal. Nose: Mucosal edema present. Mouth/Throat: Pharynx: Oropharynx is clear. Eyes: Conjunctiva/sclera: Conjunctivae normal. Cardiovascular: Rate and Rhythm: Normal rate and regular rhythm. Heart sounds: Normal heart sounds. Pulmonary: Effort: Pulmonary effort is normal. No respiratory distress. Breath sounds: Normal breath sounds. No wheezing or rales. Chest: Comments: Erythematous macular rash to breasts (possible viral exanthem), no tenderness, lumps, he will plug ducts palpated. Musculoskeletal: Cervical back: No rigidity. Skin: General: Skin is warm and dry. Findings: Rash present. Rash is papular. Comments: Some papules Neurological: General: No focal deficit present. Mental Status: She is alert and oriented to person, place, and time. Psychiatric: Mood and Affect: Mood normal. Behavior: Behavior normal. Thought Content: Thought content normal. Vitals: 04/24/24 1828 BP: 112/74 BP Location: Left arm Patient Position: Sitting Pulse: 86 Resp: 18 Temp: 37 ??C (98.6 ??F) TempSrc: Oral SpO2: 98% Weight: 108 kg (238 lb) No LMP recorded. Assessment/Plan Clear cause or diagnosis for rash Breast rash could be viral exanthem, however this does not explain rash to the chest, arms, back ofher legs that has been present for 2 weeks. Patient declines COVID or flu testing Prednisone prescribed for rash triamcinolone cream prescribed. Patient advised that exposureprednisone can be minimized by rating 4 hours to breastfeed after taking medication. If using steroid cream to the breasts avoid putting on nipple or areola or wipe breasts off well before feeding Diagnoses and all orders for this visit: Dermatitis (Primary) - predniSONE (DELTASONE) 20 mg tablet; Take 2 tablets (40 mg) by mouth daily for 5 days - triamcinolone (KENALOG) 0.1 % cream; Apply topically 2 (two) times a day Viral URI No results found for this or any previous visit (from the past 24 hours). Patient Education: Disposition Treatment plan including expectations, follow up, and return precautions discussed with patient/parent, verbalizes understanding. Medication dosage, use, and potential adverse reactions discussed with patient/parent. Advised to follow up with PCP if symptoms do not resolve as expected or sooner if condition worsens. Signs/symptoms warranting ER evaluation reviewed. Patient and/or guardian was given an opportunity to ask questions, questions answered. This office note has been partially dictated using [email or web address] software, and as a result portions of the record may have been created with this software. Occasional wrong-word or '[id number]' substitutions may have occurred due to the inherent limitations of voice recognition software. Read the chartcarefully and recognize, using context, where substitutions have occurred Amanda Stone NP D MANAGER documented in this encounter Plan of Treatment Not on file documented as of this encounter Visit Diagnoses Diagnosis Dermatitis- Primary Contact dermatitis and other eczema, due to unspecified cause Viral URI Acute upper respiratory infections of unspecified site documented in this encounter Care Teams Service Aide Relationship Specialty Start Date End Date Ross Florian PA [address] [place] [address] PCP - General Family Practice 01/21/23 documented as of this encounter
--- OUTSIDE RECORDS SUMMARY | 2024-06-25 04:15 | XMS_ITS | Clinical Summary ---
Author Organization [facility] Address [address] [place] [address] Phone Care Team Providers Care Stock Lifter Name Role Phone Ross Florian Primary Care Provider [phone] Immunizations Immunization Administration Dates Next Due Covid-19, Mrna, Lnp-s, PF, 1 00 mcg/0.5 mL Dose (Moderna) 11/03/2020,10/09/2020 Social History Tobacco Use Types Packs/Day Years Used Date Smoking Tobacco: Never Assessed Comments Unknown Sex and Gender Information Value Date Recorded Sex Assigned at Not on file Legal Sex Female 4:03 PM PROGRAMMING INTERNSHIP Gender Identity Not on file Sexual Orientation Not on file Plan of Treatment Health Maintenance Due Date Last Done Comments Hepatitis C Virus (HCV) Screening 1995 Hepatitis B Immunization (1 of 3 - 19+ 3-dose series) 09/24/2014 Influenza Immunization (#1) 2024 05/11/2019 SARS-COV-2 Immunization (3 - 2023-25 season) 2024 11/03/2020, 10/09/2020 Respiratory Syncytial Virus (RSV) Immunization (Adult) (1 - 1-dose 75+ series) 09/24/2070 DTaP/Tdap/Td Immunization Discontinued 02/21/2019 TdaP Immunization Completed 02/21/2019 Meningococcal Immunization (ACWY) Aged Out No longer eligible based on patient's age to complete this topic Pneumococcal Immunization Combined Aged Out No longer eligible based on patient's age to complete this topic Rotavirus Immunization Aged Out No lo nger eligible based on patient's age to complete this topic Care Teams Stock Lifter Relationship Specialty Start Date End Date Ross Florian, [facility] [address] [place] [address] PCP - General Physician Neonatologist 11/03/20
--- OUTSIDE RECORDS SUMMARY | 2024-06-25 04:15 | XMS_ITS | Encounter Summary ---
Author Organization [facility] Healthcare Address [address] [place] [address] Care Team Providers Care Frame Welder Cargo Utility Trailers Name Role Phone Unavailable Primary Care Provider Unavailabl e Encounter Details Date Type Department Care Team (Late st Contact Info) Description 2007 8:24 PM CDT - 2007 11:05 PM CDT Hospital Encounter [facility] Garrick Bah MD [address] [place] [address] Nneka Jules Social History Tobacco Use Types Packs/Day Years Used Date Smoking Tobacco: Never Assessed Comments Unknown Sex and Gender Information Value Date Recorded Sex Assigned at Not on file Legal Sex Female 9:50 AM AIRPORT TOWER CONTROLLER Gender Identity Not on file Sexual Orientation Not on file documented as of this encounter Plan of Treatment Not on file documented as of this encounter Visit Diagnoses Not on filedocumented in this encounter
--- OUTSIDE RECORDS SUMMARY | 2024-06-25 04:15 | XMS_ITS | Encounter Summary ---
Author Organization [facility] Healthcare Address [address] [place] [id number] Care Team Providers Care Policy Analyst Name Role Phone Ross Florian Primary Care Provider [phone] Encounter Details Date Type Department Care Team (Latest Contact Info) Description 04/08/2023 7:02 PM CDT - 04/08/2023 11:59 PM CDT Hospital Encounter [address] [address] Sore throat Discharge Disposition: Discharge to home or self care Social History Tobacco Use Types Packs/Day Years Used Date Smoking Tobacco: Never Assessed Comments Yes Sex and Gender Information Value Date Recorded Sex Assigned at Not on file Legal Sex Female 9:50 AM OFFICE CLINICIAN Gender Identity Not on file Sexual Orientation Not on file documented as of this encounter Discharge Disposition Disposition Code Departure Means Destination Discharge to home or self care documented in this encounter Miscellaneous Notes * Result Encounter Note - Caren Preciado MA - 04/08/2023 11:59 PM CDT LM on Voice Mail to return call for message from provider documented in this encounter Plan of Treatment Not on file documented as of this encounter Procedures Procedure Name Priority Date/Time Associated Diagnosis Comments THROAT CULTURE Routine 04/08/2023 7:02 PM CDT Sore throat documented in this encounter Results * Throat culture Throat (04/08/2023 7:02 PM CDT) Report Final Report: No growth of pathogens. ADWOA HOLGUIN Comment:Testing performed by : [facility], [address] [place] [address] Throat 04/08/2023 7:02 PM CDT 04/09/2023 12:17 PM CDT Narrative ADWOA HOLGUIN - 04/10/2023 7:46 AM CDT Testing performed by [facility] ([phone]). Afshan Roa NP LAB MICROBIOLOGY - GENERAL ORDERABLES Final Result AD[facility] [id number] [address] Department [place] [address] documented in this encounter Visit Diagnoses Diagnosis Sore throat Acute pharyngitis documented in this encounter Care Teams Policy Analyst Relationship Specialty Start Date End Date Ross Florian PA [address] [place] [address] PCP - General Family Practice 01/21/23 documented as of this encounter
--- OUTSIDE RECORDS SUMMARY | 2024-06-25 04:15 | XMS_ITS | Encounter Summary ---
Author Organization [facility] Address [address] [place] [address] Phone Care Team Providers Care Coordinator Of Evaluation Name Role Phone Unavailable Primary Care Provider Unavailabl e Reason for Visit * Reason Onset Date Comments COVID-19 05/08/2020 Encounter Details Date Type Department Care Team ([facility] st Contact Info) Description 05/08/2020 Telephone [facility] [address] [place] [address] Provider, None [place] COVID-19 Social History Tobacco Use Types Packs/Day Years Used Date Smoking Tobacco: Never Assessed Comments Unknown Sex and Gender Information Value Date Recorded Sex Assigned at Not on file 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 Her COVID test came back positive from [facility]. Was tested on 05/05/20. Asking questions about quarantine. Her symptoms started 05/03/20. CARE AT HOME for patient with suspected or confirmed Novel Coronavirus (COVID-19) Stay at home unless medical care is advised by your healthcare provider. Do not go to work, school, or public places. Avoid public transportation, ride sharing services (U[employer] or Lyft) or taxis. Separate yourself from other people and animals in your home as much as possible Stay in a room with separate bathroom, if possible, away from others in your home. Restrict contact with pets and other animals just like you would people (just to be safe). Call ahead before visiting your doctor Tell your healthcare provider you may have or do have Coronavirus (COVID-19). Wear a face mask- If you leave your home it is recommended If you do need to visit your healthcare provider, put on a facemask before entering the provider's office/location. Cover your cough and sneeze Throw tissues in the garbage can immediately. Wash hands with soap and water or hand die cast operator with 60-90% alcohol, covering all surfaces of yourhands and rubbing them together until they feel dry. Avoid sharing personal household items Do not share dishes, drinking glasses, utensils, towels, or bedding with other people in your home.After using these items, wash thoroughly with soap and water Whenever possible wash laundry with hot water. Clean all high touch surfaces every day This includes counters, tabletops, doorknobs, fixtures, toilets, phones, keyboard, tablets, and bedside tables. Use a household cleaning spray or wipe according to label instructions. Monitor your symptoms Seek medical attention if you feel worse. Call office or hospital before leaving home to notify youare on your way. You can call back if you worsen and need to speak with a provider (MARY/GILBERT/ from COVID-19 [employer]). Discontinuing Home Isolation: a) 10 days since symptoms first appeared and b) 24 hours with no fever without the use of fever-reducing medications and c) Other symptoms of COVID-19 are improving * *Loss of taste and smell may persist for weeks or months after recovery and need not delay the end of isolation Note that these recommendations do not apply to persons with severe COVID-19 or with severely weakened immune systems (immunocompromised). Excuse Note: Patient request for an excuse note: Instruct them to send request for note through [facility] or call PCP office. (Per CDC: Employers should not require a positive COVID-19 test result or a healthcare provider's note for employees who are sick to validate their illness, qualify for sick leave, or to return to work. [facility] is not providing excuse for work notes or return to work notes at this time per CDC recommendations). Went over all guidelines and patient verbalized understanding. PATCHER documented in this encounter Plan of Treatment Not on file documented as of this encounter Visit Diagnoses Not on filedocumented in this encounter
--- OUTSIDE RECORDS SUMMARY | 2024-06-25 04:15 | XMS_ITS | Encounter Summary ---
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 aware * Telephone Encounter - Nat Rivera MA - 04/10/2023 7:16 PM CDT ----- Message from Sari Canales NP sent at 04/10/2023 8:05 AM CDT ----- Please call patient and let her know that her throat culture was negative. She should follow-up with her PCP if symptoms persist documented in this encounter Plan of Treatment Not on file documented as of this encounter Visit Diagnoses Not on filedocumented in this encounter Care Teams Leak Detector Relationship Specialty Start Date End Date Ross Florian PA [address] [place] [address] PCP - General Family Practice 01/21/23 documented as of this encounter
--- OUTSIDE RECORDS SUMMARY | 2024-06-25 04:15 | XMS_ITS | Clinical Summary ---
Author Organization [facility] [address] Address [address] [place] [address] Phone Care Team Providers Care Bench Examiner Name Role Phone Ross Florian Primary Care Provider [phone] Allergies No known active allergies Medications [id number] 25 mg iron-1 mg -400 mg combo pack Take by mouth Ac tive triamcinolone (KENALOG) 0.1 % creamIndication s:Dermatitis Apply topically 2 (two) times a day 30 g 4 Active Active Problems No known active problems Encounters Date Type Department Care Team Description 04/24/2024 6:30 PM ROLL TUBE SETTER Office Visit [facility] [place] [address] [place] [address] Amanda Stone NP Dermatitis (Primary Dx); Viral URI from Last 3 Months Social History Tobacco Use Types Packs/Day Years Used Date Smoking Tobacco: Never Assessed Comments Unknown Sex and Gender Information Value Date Recorded Sex Assigned at Not on file Legal Sex Female 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 TUBE SETTER Gender Identity Not on file Sexual Orientation Not on file Obstetrics History Para Term AB IAB SAB Ectopic Multiple Livin g Live Births 1 Date Outcome GA Total Labor Labor/2nd/3rd Weight Sex Type Anes PTL Ally A1 A5 Name Clin Last Filed Vital Signs Vital Sign Reading Time Taken Comments Blood Pressure 112/74 04/24/2024 6:28 PM ROLL TUBE SETTER Pulse 86 04/24/2024 6:28 PM ROLL TUBE SETTER Temperature 37 ??C (98.6 ??F) 04/24/2024 6:28 PM ROLL TUBE SETTER Respiratory Rate 18 04/24/2024 6:28 PM ROLL TUBE SETTER Oxygen Saturation 98% 04/24/2024 6:28 PM ROLL TUBE SETTER Inhaled Oxygen Concentration - - Weight 108 kg (238 lb) 04/24/2024 6:28 PM ROLL TUBE SETTER Height 165.1 cm (5' 5 ) 07/16/2023 12:02 PM ROLL TUBE SETTER Body Mass Index 39.61 07/16/2023 12:02 PM ROLL TUBE SETTER Plan of Treatment Health Maintenance Due Date Last Done Comments Cervical Cancer Screening 1995 Depression Screening 1995 Hepatitis C Screening 1995 Varicella Vaccines (2 of 2 - 13+ 2-dose series) 02/05/2010 01/08/2010 Hepatitis B Screening 09/24/2013 Regular Well Visit/Exam 18-64 09/24/2013 Covid-19 Vaccine (3 - 2023-2 5 season) 2024 11/03/2020, 10/09/2020 Influenza Vaccine (#1) 2024 9, 04/18/2016 DTaP/Tdap/Td Vaccine (3 - Td or Tdap) 02/21/2029 02/21/2019, 01/08/2010 HPV Vaccines Completed 04/02/2011, 01/07/2011, 01/08/2010 Pneumococcal vaccine <65 Aged Out No longer eligible based on patient's age to complete this topic Insurance [facility] ACCESS CHOICE Care Teams Bench Examiner Relationship Specialty Start Date End Date Ross Florian PA [address] [place] [address] PCP - General Family Practice 01/21/23
--- OUTSIDE RECORDS SUMMARY | 2024-06-25 04:15 | XMS_ITS | Data Portability ---
Author Organization [facility] Address [address] [place] [address] Care Team Providers Care Correspondence Review Clerk Name Role Phone JATIN FLORIAN Referring Provider Assessment No assessment recorded. Plan of Treatment Reminders Order Date Submit Date Provider Last Modified By Organization Details Last Modified Time Details Appointments None recorded. Lab urinalysis , dipstick 2021 022 MIN In-Office Order, Internal Use Only DO Not Attach Compendium DO Not Attach Compendium, Do Not Delete/merge, [id number] 16:58:06 Referral None recorded. Procedures None recorded. Surgeries None recorded. Imaging None recorded. Medication Orders neomycin-p olymyxin-d exameth 3.5 mg/mL-10,0 00 unit/mL-0. 1% eye drops 2019 020 [facility] #[id number], [address], [place], [place], [id number], 2 13:57:04 prednisone 20 mg tablet 2019 020 [facility] #75019, [address], [place], [place], [id number], 2 13:57:07 Medrol (Dylan) 4 mg tablets in a dose pack 2021 022 [facility] #14696, [address], [place], [place], [id number], 3 11:45:20 azithromyc in 500 mg tablet 2021 [facility] #80136, [address], [place], [place], [id number], 2 16:22:35 codeine 10 mg-guaifen esin 100 mg/5 mL oral liquid 2021 [facility] #18905, [address], [place], [place], [id number], 16:22:39 Depo-Medro l 80 mg/mL suspension for injection 2022 [email or web address] Not available 12:21:48 nystatin-t riamcinolo ne 100,000 unit/g-0.1 % topical cream 2022 023 [facility] #58500, [address], [place], [place], [id number], 14:27:50 Patient TargetsNo targets recorded. Patient Instructions Encounter Date Encounter Id Patient Instructions Last Modified By Organization Details Last Modified Time 08/22/2019 [id number] krystale: care instructions jnanney Not available 08/22/2019 10:45:12 11/25/2021 [id number] get AZO and start jnanney Not availab le 11/25/2021 16:39:46 12/17/2022 [id number] A healthy lifestyle: care instructions jnanney Not available 12/17/2022 12:04:44 Reason for Referral None Reported. Results Created Date Observation Date Name Description Value Unit Range Abnormal Flag Note LastModifiedBy Organization Detail LastModifiedTime 11/26/1911/25/2021 urina lysis , dipst ick Leukocytes Negati ve Not Available In-Office Order Internal Use Only DO Not Attach Compendium DO Not Attach Compendium, Do Not Delete/merge, [id number] 11/25/2021 16:38:02 11/26/19 22 11/25/2021 urina lysis , dipst ick Nitrite negati ve Not Available In-Office Order Internal Use Only DO Not Attach Compendium DO Not Attach Compendium, Do Not Delete/merge, 11/25/2021 16:38:02 11/26/19 22 11/25/2021 urina lysis , dipst ick Urobilinogen .2 Not Available In-Of fice Order Internal Use Only DO Not Attach Compendium DO Not Attach Compendium, Do Not Delete/merge, 11/25/2021 16:38:02 11/26/19 22 11/25/2021 urina lysis , dipst ick Protein Trace Not Available In-Office Order Internal Use Only DO Not Attach Compendium DO Not Attach Compendium, Do Not Delete/merge, 11/25/2021 16:38:02 11/26/19 22 11/25/2021 urina lysis , dipst ick pH 6.0 Not Available In-Office Order Internal Use Only DO Not Attach Compendium DO Not Attach Compendium, Do Not Delete/merge, 11/25/2021 16:38:02 11/26/19 22 11/25/2021 urina lysis , dipst ick Blood Small Not Available In-Office Order Internal Use Only DO Not Attach Compendium DO Not Attach Compendium, Do Not Delete/merge, 11/25/2021 16:38:02 11/26/19 22 11/25/2021 urina lysis , dipst ick Specific Steedman 1.020 Not Available In-Off ice Order Internal Use Only DO Not Attach Compendium DO Not Attach Compendium, Do Not Delete/merge, 11/25/2021 16:38:02 11/26/19 22 11/25/2021 urina lysis , dipst ick Ketone Negati ve Not Available In-Office Order Internal Use Only DO Not Attach Compendium DO Not Attach Compendium, Do Not Delete/merge, 11/25/2021 16:38:02 11/26/19 22 11/25/2021 urina lysis , dipst ick Bilirubin Negati ve Not Available In-Office Order Internal Use Only DO Not Attach Compendium DO Not Attach Compendium, Do Not Delete/merge, [id number] 11/25/2021 16:38:02 11/26/19 22 11/25/2021 urina lysis , dipst ick Glucose Negati ve Not Available In-Office Order Internal Use Only DO Not Attach Compendium DO Not Attach Compendium, Do Not Delete/merge, [id number] 11/25/2021 16:38:02 11/26/19 22 11/25/2021 urina lysis , dipst ick Appearance Turbid Not Available In-Offi ce Order Internal Use Only DO Not Attach Compendium DO Not Attach Compendium, Do Not Delete/merge, [id number] 11/25/2021 16:38:02 11/26/19 22 11/25/2021 urina lysis , dipst ick Color Yellow Not Available In-Office Order Internal Use Only DO Not Attach Compendium DO Not Attach Compendium, Do Not Delete/merge, [id number] 11/25/2021 16:38:02 Result Notes None recorded. Problems Name Problem SNOMED Code Status Onset Date Resolution Date Notes Provider Name and Address Organization Details Recorded Time Vaginal discharge 010681446 Active Sarah U[place], [place] - [facility] 6 14:28:39 Urinary tract pain 386506427 Active Sarah [place] [facility] 6 14:28:39 Candidiasis of vagina 98220493 Active Sarah Frenchs [place], [place] [facility] 6 14:28:39 Menorrhagia 662176918 Active 2015 Sarah [place], [place] [facility] 6 09:11:47 Pain in pelvis 97166287 Active 2015 Sarah U[place], [place] - [facility] 6 09:12:04 Problem Notes None recorded. Procedures Surgical History Date Name Laterality Status Provider Name and Address Organization Details Recorded Time 9 Date of Last Pap Smear completed Ethel Westbrook [place] - [facility] 09/17/2021 13:58:35 7 Depo Injection completed Cee Nguyen MA [place] - [facility] 017 09:40:45 7 Depo Injection completed KARINE Mendoza [facility] 017 09:28:23 7 Depo Injection completed KARINE Mendoza [facility] 017 10:38:59 6 Depo Injection completed KARINE Mendoza [facility] 016 09:44:27 6 Depo Injection completed KARINE Mendoza [facility] 016 14:45:12 Imaging Results None recorded. Procedure Notes None recorded. Medical Equipment None Reported. Allergies No known drug allergies Medications Name Sig Start Date Stop Date Status Note LastModified by Organization Details LastModified Time anthony/poly/de x suly 0.1% op 09/17 completed Not Available Not Available Not Available cyclobenzap rine 10 mg tablet 07/28 completed Not Available Not Available Not Available amoxicillin 500 mg capsule 05/06 completed Not Available Not Available Not Available metformin 500 mg tablet 04/22 completed Not Available Not Available Not Available nabumetone 750 mg tablet 07/28 completed Not Available Not Available Not Available triamcinolo ne acetonide 0.5 % topical cream APPLY A THIN LAYER TO THE AFFECTED AREA(S) BY TOPICAL ROUTE 2 TIMES PER DAY active Not Available Not Available No t Available ibuprofen 800 mg tablet TAKE 1 TABLET BY MOUTH EVERY 6 HOURS NEEDED 12/17 completed Not Available Not Available Not Available clomiphene citrate 50 mg tablet 04/22 completed Not Available Not Available Not Available Loestrin Fe 07/04 (28-Day) 1 mg-20 mcg (21)/75 mg (7) tablet Take 1 tablet every day by oral route. 2014 active Not Available Not Available Not Avai lable hydrocodone 5 mg-acetamin ophen 325 mg tablet 08/21 completed Not Available Not Available Not Available fluconazole 200 mg tablet TAKE 1 TABLET BY MOUTH EVERY 72 HOURS 09/17 completed Not Available Not Available Not Available phenazopyri dine 200 mg tablet 04/22 completed Not Available Not Available Not Available prednisone 20 mg tablet TK 3 TS PO QD FOR 5 DAYS 04/05 /2022 completed Not Available Not Available Not Available Tubersol 5 tub. unit/0.1 mL intradermal injection solution Administe r .1ml interderm ally 05/06 completed Not Available Not Available Not Available clindamycin HCl 150 mg capsule active Not Available Not Available Not Available Diflucan 150 mg tablet Take 1 tablet every 72 hours by oral route prn vaginal candidias is. 2015 active Not Available Not Available Not Avai lable metronidazo le 500 mg tablet Take 1 tablet twice a day by oral route as directed for 7 days. active Not Available Not Available No t Available acetaminoph en 300 mg-codeine 30 mg tablet active Not Available Not Available Not Available ciprofloxac in 500 mg tablet Take 1 tablet every 12 hours by oral route for 10 days. 09/17 completed Not Available Not Available Not Available sulfamethox azole 800 mg-trimetho prim 160 mg tablet 04/22 completed Not Available Not Available Not Available tramadol 50 mg tablet TAKE 1 TO 2 TABLETS BY MOUTH EVERY 6 HOURS NEEDED FOR PAIN 12/17 completed Not Available Not Available Not Available amoxicillin 500 mg tablet Take 1 tablet 3 times a day by oral route. 12/22 completed Not Available Not Available Not Available Depo-Medrol 80 mg/mL suspension for injection Take 1 mL by injection route. 2022 active Not Available Not Available Not Avai lable ketorolac 10 mg tablet active Not Available Not Available Not Available amoxicillin 875 mg tablet 04/22 completed Not Available Not Available Not Available estradiol 1 mg tablet Take 1 tablet every day by oral route for 10 days. 01/27 completed Not Available Not Available Not Available cephalexin 500 mg capsule TAKE 1 CAPSULE BY MOUTH THREE TIMES DAILY FOR 10 DAYS 12/17 completed Not Available Not Available Not Available neomycin-po lymyxin-dex ameth 3.5 mg/mL-10,00 0 unit/mL-0.1 % eye drops INSTILL 1 DROP INTO AFFECTED EYE(S) BY OPHTHALMI C ROUTE EVERY 3-4 HOURS 09/17 completed Not Available Not Available Not Available nystatin-tr iamcinolone 100,000 unit/g-0.1 % topical cream APPLY TO THE AFFECTED AREA(S) BY TOPICAL ROUTE 2 TIMES PER DAY IN THEMORNIN G AND EVENING 12/18 completed Not Available Not Available Not Available lidocaine HCl 2 % mucosal solution active Not Available Not Available Not Available codeine 10 mg-guaifene sin 100 mg/5 mL oral liquid TAKE 10 ML BY MOUTH EVERY 4 HOURS 11/25 completed Not Available Not Available Not Available methylpredn isolone 4 mg tablets in a dose pack TAKE DIRECTED 12/17 completed Not Available Not Available Not Available medroxyprog esterone 150 mg/mL intramuscul ar suspension Inject 1 mL every 3 months by intramusc ular route as needed. 12/22 completed Not Available Not Available Not Available dicyclomine 10 mg capsule Take 1 capsule 3 times a day by oral route as needed for 30 days. 04/22 completed Not Available Not Available Not Available naproxen 500 mg tablet TAKE 1 TABLET BY MOUTH TWICE DAILY 12/17 completed Not Available Not Available Not Available amoxicillin 875 mg-potassiu m clavulanate 125 mg tablet TAKE 1 TABLET BY MOUTH EVERY 12 HOURS UNTIL ALL TAKEN 12/17 completed Not Available Not Available Not Available NuvaRing 0.12 mg-0.015 mg/24 hr vaginal Insert 1 vaginal ring every month by vaginal route. 12/22 completed Not Available Not Available Not Available azithromyci n 500 mg tablet TAKE 1 TABLET BY MOUTH EVERY DAY FOR 3 DAYS 11/25 completed Not Available Not Available Not Available atomoxetine 25 mg capsule TAKE 1 CAPSULE BY MOUTH EVERY DAY FOR 7 DAYS 12/17 completed Not Available Not Available Not Available atomoxetine 40 mg capsule TAKE 1 CAPSULE BY MOUTH EVERY DAY 12/17 completed Not Available Not Available Not Available Boostrix Tdap 2.5 Lf unit-8 mcg-5 Lf/0.5 mL intramuscul ar syringe 04/22 completed Not Available Not Available Not Available Vitamin 09/17 completed Not Available Not Available Not Available Twirla 120 mcg-30 mcg/24 hr transdermal patch UNWRAP AND APPLY 1 PATCH TO SKIN ONCE WEEKLY DIRECTED active Not Available Not Available No t Available Vitals Date Recorded Body height Body mass index (BMI) Body weight Oxygen saturation Oxygen saturation in Arterial blood by Pulse oximetry Heart rate Systolic blood pressure Diastolic blood pressure Provider Name and Address Organization Details Last Updated DateTime 0 165.1 cm 36.3 kg/m2 26004.1 4 g 98 % 98 % 94 /min 134 mm[Hg] 70 mm[Hg] Sara Mcwilliams MA [facility] 0 10:05:17 Date Recorded Body temperature Oxygen saturation Oxygen saturation in Arterial blood by Pulse oximetry Heart rate Body height Body mass index (BMI) Body weight Systolic blood pressure Diastolic blood pressure Provider Name and Address Organization Details Last Updated DateTime 2 97.8 [degF] 98 % 98 % 79 /min 165.1 cm 37.9 kg/m2 565329. 06 g 110 mm[Hg] 70 mm[Hg] Ethel Westbrook MA [facility] 2 16:25:45 Date Recorded Body weight Body mass index (BMI) Body height Oxygen saturation Oxygen saturation in Arterial blood by Pulse oximetry Heart rate Systolic blood pressure Diastolic blood pressure Provider Name and Address Organization Details Last Updated DateTime 3 674552. 43 g 38.6 kg/m2 165.1 cm 99 % 99 % 80 /min 110 mm[Hg] 75 mm[Hg] Ethel Westbrook MA [facility] 3 11:43:55 Social History Question Answer Notes LastModified by Organizat ion Details LastModified Time Tobacco Smoking Status Never [facility] 09:10:36 What Is Your Level Of Alcohol Consumption? Occasional Information not available 09/17/2021 What Is Your Level Of Caffeine Consumption? Moderate Information not available 09/17/2021 In The 14 Days Before Symptom Onset, Have You Had Close Contact With A Laboratory-confirm ed COVID-19 While That Case Was Ill? No Information n ot available 09/17/2021 In The 14 Days Before Symptom Onset, Have You Had Close Contact With A Person Who Is Under Investigation For COVID-19 While That Person Was Ill? No Information not available 09/17/2021 Have You Been To An Area Known To Be High Risk For COVID-19? No Information not available 09/17/2021 Are You Currently Employed? Yes Information not available 09/17/2021 What Type Of Diet Are You Following? 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 12/17/2022 Information not available 12/17/2022 What Is Your Relationship Status? Information not available 09/17/2021 Do You Have Smoke And Carbon Monoxide Detectors In Your Home? Yes Information not available 09/17/2021 Are You Passively Exposed To Smoke? No Information no t available 09/17/2021 Do You Feel Stressed (tense, Restless, Nervous, Or Anxious, Or Unable To Sleep At Night)? EQ3439-8 Information not available 12/17/2022 Do You Use Any Illicit Or Recreational Drugs? No Information not available 09/17/2021 Has Tobacco Cessation Counseling Been Provided? No Information not available 09/17/2021 On What Date Was Tobacco Cessation Counseling Provided? 12/17/2022 Information not available 12/17/2022 Do You Or Have You Ever Used Any Other Forms Of Tobacco Or Nicotine? No Information not available 09/17/2021 Sex: Unknown Functional Status Question Answer Note LastModified by Organization D etails LastModified Time Are you able to care for yourself? Yes Information n ot available 09/17/2021 Mental Status None recorded. Family History Nothing Reported. Medical History Condition Response Coronary Artery Disease N Other N High Blood Pressure N Atrial Fibrillation N Breast Cancer N Blood Clots N COPD N Depression N Lung Disease N Breast Problem N Anesthesia Complications N Headaches/Migraines N Anxiety Disorder N Muscle, Joint, or Bone Problems N Arthritis N Polyps N Infertility N Acid Reflux (GERD) N Cancer N Stroke N ADHD N Endometriosis N High Cholesterol N Liver Disease N Schizophrenia N Fibromyalgia N Headaches N Kidney Disease N Heart Problems N Thyroid Problems N Kidney or Bladder Problems N GI Problems N Acne N Skin Problems N Eating Disorder N Anemia N Heart Attack (CA) N Ovarian Cancer N Diabetes N Blood Transfusions N Seizures/Epilepsy N Abuse/Domestic Violence N Asthma N Allergies N Substance Abuse N Hepatitis N Heart Disease N Pre-Eclampsia N Hypertension N Osteoporosis N Heart Failure N Gynecological History Statement/Question Response Abnormal Pap N Flow Heavy Date of LMP 12/17/2022 On BCP's at Conception? N STIs/STDs N Age at Menarche 13 Current Control Method Patch Age at First Child 24 Frequency of Cycle (Q days) 7 Sexually Active? Y Menses Monthly Y Date of Last Pap Smear 06/15/2018 Sexual Problems? N LMP Definite Obstetrics History GPAL:G 1 P 1 0 0 1 Type Value Full Term 1 Living 1 Total 1 Immunizations Vaccine Type Date Status Note Provider James magallanes and Address Organization Details Recorded Time COVID-19, mRNA, LNP-S, PF, 100 mcg/0.5mL dose or 50 mcg/0.25mL dose 1 completed KARINE Jean, [place] - [facility] 12/17/2022 11:52:30 COVID-19, mRNA, LNP-S, PF, 100 mcg/0.5mL dose or 50 mcg/0.25mL dose 1 completed [place]AR[place] [facility] 12/17/2022 11:52:30 Tdap 0 completed Ethel [place], [place] [facility] 12/17/2022 11:52:30 Tdap 9 completed [place]AR[place] [facility] 12/17/2022 11:52:30 varicella 0 [place] [facility] 12/17/2022 11:52:30 HPV, unspecified formulation 1 completed [place] [facility] 12/17/2022 11:52:30 HPV, quadrivalent 1 completed [place] [facility] 12/17/2022 11:52:30 HPV, quadrivalent 0 [place] [facility] 12/17/2022 11:52:30 meningococcal C conjugate 0 completed [place] [facility] 12/17/2022 11:52:30 Influenza, split virus, quadrivalent, PF 6 completed [place] [facility] 12/17/2022 11:52:31 Influenza, split virus, quadrivalent, PF 9 completed Ethel WestbrookKARINE, [facility] 12/17/2022 11:52:31 Past Encounters Encounter ID Performer Location Encounter Start Date Encounter Closed Date Diagnosis/Indication Diagnosis SNOMED-CT Code Diagnosis ICD10 Code Diagnosis Note [id number] Milla Dove [facility] Arron Keller ([place] [address]) [address] [facility] [place] [address] 03/12/2015 08:58:40 03/12/2015 09:38:23 Gynecologic examination 39958624 [facility] ion education 099600778 [id number] Milla Dove [facility] Arron Keller ([place] [address]) [address] [facility] [place] [address] 06/13/2015 09:20:54 06/13/2015 12:20:10 Surveillance of oral contraception 957964816 Z30.41 [id number] Rachel Guevara [facility] [address] [place] [address] 11/14/2015 16:25:31 11/14/2015 17:12:35 Vaginal discharge 140525643 N89.8 Urinary tract pain 59891 2002 R39.89 [id number] Milla Dove [facility] Arron Keller ([place] [address]) [address] [facility] [place] [address] 11/20/2015 13:22:27 11/21/2015 09:26:00 Contraception care education 373534797 Z30.09 [id number] Milla Dove [facility] Arron Keller ([place] [address]) [address] [facility] [place] [address] 02/04/2016 14:13:05 02/04/2016 15:13:36 Uses depot contraception 122533443 Z30.753 [id number] Milla Dove [facility] Arron Keller ([place] [address]) 2 [facility] [place] [address] 04/15/2016 09:00:21 04/15/2016 14:09:19 Irregular periods 49457833 N92.6 [id number] Jatin Florian PA-C [facility] [address] [place] [address] 04/15/2016 16:47:39 04/15/2016 18:00:12 Tuberculosis screening 802409276 Z11.1 Adult heal th examination 003900167 Z00.00 [id number] Milla Dove [facility] ([place] [address]) [address] [place] [address] 05/06/2016 09:25:58 05/06/2016 10:46:46 Uses depot contraception 642920435 Z30.575 [id number] Milla Dove [facility] [facility] ([place]AC[place] 122) [address] [place] [address] 08/05/2016 09:14:46 08/05/2016 15:06:19 Contraception care management 043741282 Z30.9 [id number] Milla Dove [facility] ([place]AC[place] 122) [address] [place] [address] 10/28/2016 09:13:31 10/28/2016 10:13:30 Gynecologic examination 58208086 Z01.419 Uses depot contraception 697803254 Z30.653 [id number] Milla Dove [facility] ([place] 122) [address] [place] [address] 01/27/2017 09:05:46 01/27/2017 11:39:22 Uses depot contraception 961751612 Z30.496 [id number] Rachel Guevara [facility] [place] [facility] ([place]AC[place] 122) [address] [place] [address] 04/30/2017 09:23:20 04/30/2017 12:43:27 Contraception care management 637320103 Z30.9 [id number] [facility] ([facility] [address] [place] [address] 07/28/2017 09:33:54 07/29/2017 10:19:49 Contraception care 166268007 Z30.40 At [facility] risk of urinary tract infection 746034493 Z91.89 [id number] JESSICA Armenta [address] [facility] [place] [address] 12/22/2017 11:08:36 12/22/2017 11:52:50 Irritable bowel syndrome 35020179 K58.9 Irritable bowel syndrome characterized by constipation 220559403 K58.1 [id number] Sara Mcwilliams MA [facility] [address] [place] [address] 04/22/2019 09:52:53 04/22/2019 14:48:34 Atopic dermatitis 25877025 L20.9 [id number] Jatin Florian PA-C [facility] [address] [place] [address] 08/22/2019 09:47:27 08/22/2019 12:02:47 Acute conjunctivitis 07069152 H10.000 [id number] Jatin Florian PA-C [facility] [address] [place] [address] 11/22/2019 09:41:00 11/23/2019 07:30:04 Contact dermatitis caused by urushiol from [facility] 510434090 L25.5 [id number] Jatin Florian PA-C [facility] [address] [place] [address] 09/17/2021 09:35:54 09/17/2021 14:24:25 COVID-19 239697856 U07.1 [id number] Jatin Florian PA-C [facility] [address] [place] [address] 11/25/2021 15:50:15 11/25/2021 16:44:07 Acute urinary tract infection 228784192 N39.0 [id number] Jatin Florian PA-C [facility] [address] [place] [address] 12/17/2022 11:35:21 12/18/2022 09:08:34 Pruritic rash 67723733 L28.2 Candidiasis of skin 4988 3006 B37.2 Overweight 606388720 E66 .3 Health Concerns Section Related Observation LastModified by Organization Detai ls LastModified Time None Recorded Concern Status LastModified by Organization Details LastModified Time None Recorded Advance Directives Directive None Recorded Payers Encounter Date Sequence Insurance Name Policy Number Policy Su Covered Member ID Su Member ID Guarantor Name 08/22/2019 1 [facility] [id number] Marquis Chauden [id number] Kitty Zapien 11/22/2019 1 [facility] [id number] Marquis Chauden [id number] Kitty Zapien 09/17/2021 1 [facility] [id number] Marquis Chauden [id number] Kitty Zapien 11/25/2021 1 [place] [id number] Kitty Pugh Elad[place] [id number] Kitty Zapien 12/17/2022 1 [place] [id number] Kitty Pugh Eladia [id number] Kitty Zapien Notes Date Note Type Note Provider Name and Address Organization Details Recorded Time 08/22/2019 text/html 23 y/o female presents with pain and redness in left eye beginning this morning. Pain aggravated by light. Feels similar to previous episodes of pink eye. Does not wear contacts or glasses. No purulent drainage, crusting, vision changes. Jatin Florian PA-C Attn: [address] [place], [address], [facility] 08/22/2019 10:48:26 11/22/2019 text/html got poison sumac...getting bad! Jatin Florian PA-C Attn: [address] [place], [address], [facility] 11/22/2019 18:45:46 09/17/2021 text/html neg covid ...has lost sense of taste and smell...feels rough ...sore throat ...body aches Jatin Flroian PA-C Attn: [address]ing,[address] [place], [address], [facility] 09/17/2021 14:12:38 11/25/2021 text/html was given cephalexin vs uti...telehealth. ..has improved but still has residual...back pain...awoke thursday morning with back pain indicated rt flank... Jatin Florian PA-C Attn: [address] [place], [address], [place] [facility] 11/25/2021 16:40:05 12/17/2022 text/html may have flea bites and itchy rash for two weeks..hx of skin ayaan Jatin Florian PA-C Attn: Accounting,[address] [facility], [place], [address], [facility] 12/17/2022 12:06:19 OBGyn Episode No OBEpisode recorded.
--- OUTSIDE RECORDS SUMMARY | 2024-06-25 04:15 | XMS_ITS | Encounter Summary ---
Author Organization [facility] Address [address] [place] [address] Phone Care Team Providers Care Supervisor Bindery Name Role Phone CaridadRoss diop Primary Care Provider [phone] Encounter Details Date Type Department Care Team (Late st Contact Info) Description 11/03/2020 9:40 AM CDT Immunization [facility] [address] [place] [id number] Sonam Landa MD [address] [place], [place] [id number] Need for vaccination (Primary Dx) Discharge Disposition: Discharged to home or Selfcare Social History Tobacco Use Types Packs/Day Years Used Date Smoking Tobacco: Never Assessed Comments Unknown Sex and Gender Information Value Date Recorded Sex Assigned at Not on file 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 No / Unsure 11/03/2020 9:39 AM CDT documented as of this encounter Patient Instructions * Patient Instructions* Jonelle Weiss CMA - 11/03/2020 9:40 AM CDT You received your second immunization for COVID-19 11/03/2020 at [facility]. Please check the card provided to you with the name of the immunization. Remember, the vaccine does not allow the SARS-CoV-2 virus to replicate and it cannot cause any known illness. No vaccine can cause a patient to develop the disease against which they were vaccinated. It can take up to 14 days after your second dose to gain full immunity. Possible side effects that may be experienced after the second COVID-19 immunization include: ??? Soreness, swelling, or redness at the injection site. ??? Fatigue or malaise (feeling tired or ill) ??? Headache ??? Muscle or joint pain (body aches) ??? Chills ??? Fever ??? Nausea ??? Lymphadenopathy (enlargement of the lymph nodes) These side effects usually start within a day or two of getting the vaccine. They might feel like flu symptoms and might even affect your ability to do daily activities, but they should go away in a few days. Call your primary healthcare provider if you have any side effects that bother you or do not go away. If you experience a severe allergic reaction, call , or go to the nearest hospital. ?? An ???adverse event?? is any health problem that happens after a shot or other vaccine. For instance, signs of an allergic reaction - itching, hives, shortness of breath or difficulty breathing -should be reported immediately. You may report vaccine side effects to FDA/CDC Vaccine Adverse Event Reporting System (VAERS). The VAERS toll-free number is or report online to https://vaers.hhs.gov/reportevent.html. Smartphone users may choose to enroll in the VAppZerosafe tool that uses text messaging and web surveys to check in with people who have been vaccinated to identify potential side effects after COVID-19 vaccination. For more information on how to sign up, visit: www.cdc.gov/vsafe. Wishing you good health, [facility] documented in this encounter Progress Notes * Jonelle Weiss CMA - 11/03/2020 9:40 AM CDT Kitty is here today for COVID-19 immunization per federal guidelines/written order. See immunization activity for details. Kitty was observed post- immunization for a minimum of 15 minutes without evidence of intolerance. Patient instructions added for patient to review in her MyChart account. . COVID-19 post-vaccination Patient Instructions added to After Visit Summary for patient to review in her MyChart account. documented in this encounter Plan of Treatment Not on file documented as of this encounter Visit Diagnoses Diagnosis Need for vaccination- Primary Need for prophylactic vaccination and inoculation against unspecified single disease documented in this encounter Care Teams Supervisor Bindery Relationship Specialty Start Date End Date Ross Florian PAC [address] [place] [address] PCP - General Physician Monotypist 11/03/20 documented as of this encounter
--- OUTSIDE RECORDS SUMMARY | 2024-06-25 04:15 | XMS_ITS | Encounter Summary ---
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 No / Unsure 11/03/2020 9:39 AM CDT documented as of this encounter Plan of Treatment Not on file documented as of this encounter Visit Diagnoses Not on filedocumented in this encounter Care Teams Ethyl Blender Relationship Specialty Start Date End Date Ross Florian PAC [address] [place] [address] PCP - General Physician Footwear Stitcher 11/03/20 documented as of this encounter
--- OUTSIDE RECORDS SUMMARY | 2024-06-25 04:15 | XMS_ITS | Referral Summary ---
Author Organization [facility] [address] Address [address] [place] [address] Phone Care Team Providers Care Cosmetologist Name Role Phone Ross Florian Primary Care Provider [phone] Encounters Date Type Department Care Team Description 04/24/2024 6:30 PM FINANCIAL SYSTEMS ADMINISTRATOR Office Visit [facility] [address] [place] [address] Amanda Stone NP Dermatitis (Primary Dx); Viral URI from Last 3 Months Allergies No known active allergies Medications [id number] 25 mg iron-1 mg -400 mg combo pack Take by mouth Ac tive triamcinolone (KENALOG) 0.1 % creamIndication s:Dermatitis Apply topically 2 (two) times a day 30 g 4 Active Active Problems No known active problems Social History Tobacco Use Types Packs/Day Years Used Date Smoking Tobacco: Never Assessed Comments Unknown Sex and Gender Information Value Date Recorded Sex Assigned at Not on file Legal Sex Female 9:50 AM FINANCIAL SYSTEMS ADMINISTRATOR Gender Identity Not on file Sexual Orientation Not on file Last Filed Vital Signs Vital Sign Reading Time Taken Comments Blood Pressure 112/74 04/24/2024 6:28 PM FINANCIAL SYSTEMS ADMINISTRATOR Pulse 86 04/24/2024 6:28 PM FINANCIAL SYSTEMS ADMINISTRATOR Temperature 37 ??C (98.6 ??F) 04/24/2024 6:28 PM FINANCIAL SYSTEMS ADMINISTRATOR Respiratory Rate 18 04/24/2024 6:28 PM FINANCIAL SYSTEMS ADMINISTRATOR Oxygen Saturation 98% 04/24/2024 6:28 PM FINANCIAL SYSTEMS ADMINISTRATOR Inhaled Oxygen Concentration - - Weight 108 kg (238 lb) 04/24/2024 6:28 PM FINANCIAL SYSTEMS ADMINISTRATOR Height 165.1 cm (5' 5 ) 07/16/2023 12:02 PM FINANCIAL SYSTEMS ADMINISTRATOR Body Mass Index 39.61 07/16/2023 12:02 PM FINANCIAL SYSTEMS ADMINISTRATOR Plan of Treatment Not on file Insurance [employer] ACCESS CHOICE Member Subscriber Plan / Payer (Ef fective 2023-Present) Name:Kitty Montilla Relation to Subscriber:Spouse Name:ELADIASAURAV BRANDON Date of :1993 (Home) [address]: [address] [place] [address] Payer ID:[id number] (NAIC) Type:[employer]IANCE Address: [facility] [id number] [place] [id number] Care Teams Cosmetologist Relationship Specialty Start Date End Date Ross Florian PA [address] [place] [address] PCP - General Family Practice 01/21/23
--- OUTSIDE RECORDS SUMMARY | 2024-06-25 04:15 | XMS_ITS | Encounter Summary ---
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 No / Unsure 10/08/2020 10:35 AM CDT documented as of this encounter Plan of Treatment Not on file documented as of this encounter Visit Diagnoses Not on filedocumented in this encounter
--- OUTSIDE RECORDS SUMMARY | 2024-06-25 04:15 | XMS_ITS | Encounter Summary ---
Author Organization [facility] Healthcare Address [address] [place] [id number] Care Team Providers Care Legal Support Analyst Name Role Phone Ross Florian Primary Care Provider Reason for Visit * Reason Comments Sore Throat Patient presents tod ay with complaints of sore throat, head ache, body aches, chills. No known fevers. 29 weeks , nothing taken OTC for relief. Encounter Details Date Type Department Care Team ([facility] st Contact Info) Description 07/16/2023 12:00 PM SALESPERSON SHEET MUSIC Office Visit [facility] [place] [address] [place] [id number] Sari Canales NP [address] [place] [address] COVID-19 (Primary Dx) Social History Tobacco Use Types Packs/Day Years Used Date Smoking Tobacco: Never Assessed Comments Yes Sex and Gender Information Value Date Recorded Sex Assigned at Not on file Legal Sex Female 9:50 AM SALESPERSON SHEET MUSIC Gender Identity Not on file Sexual Orientation Not on file documented as of this encounter Last Filed Vital Signs Vital Sign Reading Time Taken Comments Blood Pressure 110/72 07/16/2023 12:02 PM SALESPERSON SHEET MUSIC Pulse 116 07/16/2023 12:02 PM SALESPERSON SHEET MUSIC Temperature 36.5 ??C (97.7 ??F) 07/16/2023 12:02 PM C Respiratory Rate 18 07/16/2023 12:02 PM SALESPERSON SHEET MUSIC Oxygen Saturation 98% 07/16/2023 12:02 PM SALESPERSON SHEET MUSIC Inhaled Oxygen Concentration - - Weight 104.8 kg (231 lb) 07/16/2023 12:02 PM SALESPERSON SHEET MUSIC Height 165.1 cm (5' 5 ) 07/16/2023 12:02 PM SALESPERSON SHEET MUSIC Body Mass Index 38.44 07/16/2023 12:02 PM SALESPERSON SHEET MUSIC documented in this encounter Patient Instructions * Patient Instructions* Sari Canales NP - 07/16/2023 12:00 PM SALESPERSON SHEET MUSIC Out of isolation on 07/20/2023 Wear a mask around others for 5 additional days once out of isolation The rapid COVID test performed today in clinic was positive. The following are recommendations for treating the symptoms related to COVID19. What is the difference between Influenza (Flu) and COVID-19? Influenza (Flu) and COVID-19 are both contagious respiratory illnesses, but they are caused by different viruses. COVID-19 is caused by infection with a new coronavirus (called SARS-CoV-2) and flu is caused by infection with influenza viruses. There are some gregorio differences between flu and COVID-19. COVID-19 seems to spread more easily than flu and causes more serious illnesses in some people. It can also take longer before people show symptoms and people can be contagious for longer. The best way to prevent infection is to avoid being exposed to the virus. Because some of the symptoms of flu and COVID-19 are similar, it may be hard to tell the difference between them based on symptoms alone, and testing may be needed to help confirm a diagnosis.While more is learned every day, there is still a lot that is unknown about COVID-19 and the virus that causes it. Your appetite may be poor, so a light diet is ok. Stay well hydrated by drinking 6 to 8 glasses of fluids per day (water, soft drinks, juices, tea, or soup). Extra fluids will help loosen secretions in the nose and lungs. Steps to help prevent the spread of COVID-19 if you are sick If you are sick with COVID-19 or think you might have COVID-19, follow the steps below to care for yourself and to help protect other people in your home and community. Stay home except to get medical care Most people with COVID-19 have mild illness and are able to recover at home without medical care. Do not leave your home, except to get medical care. Do not visit public areas. Take care of yourself. Get rest and stay hydrated. Take fguu-lhh-uxldnlk medicines to help you feelbetter. Stay in touch with your doctor. Call before you get medical care. Be sure to get care if you have trouble breathing, or have any other emergency warning signs, or if you think it is an emergency. Avoid using public transportation, ride-sharing, or taxis. Monitor your symptoms Symptoms of COVID-19 include fever, cough, shortness of breath or difficulty breathing, fatigue, muscle or body aches, headache, new loss of taste or smell, sore throat, congestion, runny nose, nausea, vomiting, or diarrhea. When to Seek Medical Attention If you develop emergency warning signs for COVID-19 get medical attention immediately. Emergency warning signs include*: Trouble breathing Persistent pain or pressure in the chest New confusion or inability to arouse Bluish lips or face *This list is not all inclusive. Please consult your medical provider for any other symptoms that are severe or concerning. Call 911 if you have a medical emergency: If you have a medical emergency and need to call 911, notify the levers lace machine operator that you have or think you might have, COVID-19. If possible, put on a facemask before medical help arrives. Separate yourself from other people in your home, this is known as home isolation As much as possible, you should stay away from other people and pets in your home. You should stay in a specific ???sick room?? if possible. Use a separate bathroom, if available. If you need to be around other people or animals in or outside of the home, wear a mask For more information on sharing close living quarters with someone who is sick visit https://www.cdc .gov/coronavirus/2019-ncov/saoxc-nfft-viddkl/aeyuip-yl-hbsfx-quarters.html For more information on COVID-19 and pets visit https://www.cdc.gov/coronavirus/2019-ncov/faq.html Call ahead before visiting your doctor If you have a medical appointment that cannot be postponed, call your doctor???s office, and tell them you have or may have COVID-19. This will help the office protect themselves and other patients. The CDC and local health departments recommend that you isolate yourself to prevent any potential spread of the virus until you have the results of your test. If you develop worsening symptoms of respiratory distress, call 911 or go to the nearest emergency room. What does self-isolation mean? - Remain at home or in a comparable setting - No public activities - You should not perform any public travel Do MY close contacts need to be isolated? - YES they should self-isolate until you have the results of your test. When will my results be available? - There is not a rapid test available at this time. It may take several days to get the results of this test. If you have MyChart, the results will be available to you at the same time as we receive them. Regardless, we will call every patient with positive or negative results. The [facility] Department will be reaching out to all patients who have a positive test for further discussion and monitoring. The CDC and [facility] have much more information available online. The websites are: - cdc.gov Additional resources around self-isolation and how to prevent spread are at: cdc.gov/coronavirus/2019-ncov/about/index.html If symptoms are severe, rest at home for the first 2 to 3 days. When you resume activity, don't letyourself get too tired. Don't smoke. If you need help stopping, talk with your healthcare provider. Avoid being exposed to cigarette smoke (yours or others???). You may use acetaminophen to control pain and fever, unless another medicine was prescribed. If youhave chronic liver disease, have ever had a stomach ulcer or gastrointestinal bleeding talk with your healthcare provider before using these medicines. Aspirin should never be given to anyone under 18 years of age who is ill with a viral infection or fever. It may cause severe liver or brain damage. Your appetite may be poor, so a light diet is fine. Stay well hydrated by drinking 6 to 8 glasses of fluids per day (water, soft drinks, juices, tea, or soup). Extra fluids will help loosen secretions in the nose and lungs. Zufc-dsk-evkvdek cold medicines will not shorten the length of time you???re sick, but they may be helpful for the following symptoms: cough, sore throat, and nasal and sinus congestion. If you take prescription medicines, ask your healthcare provider or pharmacist which ngry-lok-nruijfx medicines are safe to use. (Note: Don't use decongestants if you have high blood pressure.) The following may help you feel better: Over the counter antihistamine such as loratadine (Claritin) or cetirizine (Zyrtec) to reduce secretions. The D formula includes pseudoephedrine and can be helpful as a decongestant but should not be used if you have a history of high blood pressure. Tessalon if prescribed for cough. Albuterol inhaler if prescribed for shortness of breath, cough, or wheezing. Use you albuterol inhaler or nebulizer every 4 hours for the next 48 hours, then every 4-6 hours as needed. Don't smoke and avoid second hand smoke. Suck on cough drops or hard candies to soothe a dry or sore throat. Cough drops won't stop your cough, but they may make your throat feel better. Mucinex to thin secretions Breathe moist air from a humidifier, a hot shower, or a sink filled with hot water. The heat and moisture can help keep mucus in your airways moist so you can cough it out easily. Use nonprescription medicine, such as acetaminophen, ibuprofen, or aspirin, to relieve fever and body aches. Don't give aspirin to anyone younger than age 20. Rest more than usual. Drink plenty of fluids so that you do not become dehydrated and to keep mucous thin. Use an ghem-anz-wppmbdn cough medicine such as Delsym or Robitussin. (Cough medicines may not be safe for young children or for people who have certain health problems.) Cough suppressants may help you to stop coughing. Expectorants, such as Mucinex, can help you bring up mucus when you cough. Follow up with primary care physician in 1 week, or sooner if symptoms worsen. If You Test Positive for COVID-19 (Isolate) Everyone, regardless of vaccination status. Stay home for 5 days. If you have no symptoms or your symptoms are resolving after 5 days, you can leave your house. Continue to wear a mask around others for 5 additional days. If you have a fever, continue to stay home until your fever resolves. For those that were exposed do not have to get COVID tested unless showing symptoms Ftff-jmd-Tqcjrbo Medications Safe to Take During Pain Relief Tylenol or acetaminophen (plain/extra strength) for mild discomfort Caution: do not take aspirin (Anacin, Arley) or ibuprofen (Advil, Motrin). Medicine for Digestive Upsets Antacids (Tums, Rolaids, Mylanta, Maalox, Pepcid, Prevacid) Simethicone (Gas-X, Mylicon for gas pain, Gaviscon) Immodium or BRAT diet (bananas, rice, applesauce, toast or tea) for diarrhea Medicine for Coughs/Colds Guaifenesin (Robitussin??) Guaifenesin plus dextromethorphan (Robitussin-DM??) Cough drops Vicks VapoRub?? Acetaminophen Allergy Relief Tylenol or acetaminophen (plain/extra strength) is OK Chlorpheniramine antihistamine alone (chlor-Trimetron) Benadryl tablets Saline nasal spray Neti-pot or sinus rinse Claritin, Zyrtec, Marisa Options for Constipation Fiber can be used regularly (Metamucil??, MiraLax??, Citrucel??, BeneFiber??) Laxatives can be used occasionally (Colace??, Dulcolax??) Tucks for hemorrhoids Mix of Prune juice, OJ, 7-UP?? - equal parts Other Things You May Have Worried About That Also Appear to Be Safe Nutrasweet?? (1-2 servings per day) One or two cups of coffee per day Nix for head lice Perms Sunscreen Hair coloring products Pedicures Mosquito repellent containing DEET As always, check with your OBGYN if you have any questions on medications that are safe in SPERSON SHEET MUSIC SP[employer] documented in this encounter Progress Notes * Sari Canales NP - 07/16/2023 12:00 PM CST Images from the original note were not included. Subjective/Objective Patient ID: Kitty Montilla is a 27 y.o. female. Chief Complaint Sore Throat (Patient presents today with complaints of sore throat, head ache, body aches, chills. No known fevers. 29 weeks , nothing taken OTC for relief. ) Patient presents to convenient care for sore throat, headaches, body aches, and chills x2 days. Shedenies any known exposure to COVID, flu, or strep. Her daughter is experiencing similar symptoms. She has not taken any OTC medications for her symptoms. She is 29 weeks . She reports good movement. Sore Throat Review of Systems HENT: Positive for sore throat. All systems reviewed and are negative or non contributory for this patient's presentation today other than as stated in the HPI. Physical Exam Vitals reviewed. Constitutional: General: She is not in acute distress. Appearance: Normal appearance. She is well-developed. She is not ill-appearing. HENT: Head: Normocephalic. Right Ear: Tympanic membrane, ear canal and external ear normal. Left Ear: Tympanic membrane, ear canal and external ear normal. Nose: No congestion or rhinorrhea. Right Sinus: No maxillary sinus tenderness or frontal sinus tenderness. Left Sinus: No maxillary sinus tenderness or frontal sinus tenderness. Mouth/Throat: Lips: [place]. Mouth: Mucous membranes are moist. Pharynx: Oropharynx is clear. Posterior oropharyngeal erythema present. Eyes: General: Right eye: No discharge. Left eye: No discharge. Conjunctiva/sclera: Conjunctivae normal. Cardiovascular: Rate and Rhythm: Normal rate and regular rhythm. Pulmonary: Effort: Pulmonary effort is normal. No respiratory distress. Breath sounds: Normal breath sounds and air entry. Musculoskeletal: General: Normal range of motion. Cervical back: Neck supple. Lymphadenopathy: Head: Right side of head: No tonsillar adenopathy. Left side of head: No tonsillar adenopathy. Cervical: No cervical adenopathy. Skin: General: Skin is warm and dry. Findings: No rash. Neurological: Mental Status: She is alert and oriented to person, place, and time. Mental status is at baseline. Psychiatric: Attention and Perception: Attention normal. Mood and Affect: Mood normal. Behavior: Behavior normal. Behavior is cooperative. Thought Content: Thought content normal. Judgment: Judgment normal. Vitals: 07/16/23 1202 BP: 110/72 BP Location: Right arm Patient Position: Sitting Pulse: 116 Resp: 18 Temp: 36.5 ??C (97.7 ??F) TempSrc: Temporal SpO2: 98% Weight: 104.8 kg (231 lb) Height: 165.1 cm (5' 5 ) Assessment/Plan COVID positive Influenza and strep negative Discussed with patient that COVID is viral Reviewed isolation guidelines Reviewed safe OTC medications to help with symptoms Drink plenty of fluids to stay hydrated Get plenty of rest Return to clinic or follow up with PCP if symptoms persist longer than 10 days or sooner if symptoms worsen Go to the ER if you experience chest pain, shortness of breath, decreased movement, or feversthat do not improve with antipyretics Diagnoses and all orders for this visit: COVID-19 (Primary) - POCT rapid strep A - POC Influenza A/B, COVID-19 antigen Recent Results (from the past 4 hour(s)) POC Influenza A/B, COVID-19 antigen Collection Time: 07/16/23 12:13 PM Result Value Ref Range Influenza A Ag, POC Negative Negative Influenza B Ag, POC Negative Negative COVID-19 Ag POC Positive (A) Presumptive Negative, Invalid POCT rapid strep A Collection Time: 07/16/23 12:18 PM Result Value Ref Range Rapid Strep A, POC Negative Negative Patient Education: Disposition Treatment plan including expectations, follow up, and return precautions discussed with patient/parent, verbalizes understanding. Medication dosage, use, and potential adverse reactions discussed with patient/parent. Advised to follow up with PCP if symptoms do not resolve as expected or sooner if condition worsens. Signs/symptoms warranting ER evaluation reviewed. Patient and/or guardian was given an opportunity to ask questions, questions answered. Sari Canales NP SPERSON SHE[employer]IC documented in this encounter Plan of Treatment Not on file documented as of this encounter Procedures Procedure Name Priority Date/Time Associated Diagnosis Comments POCT RAPID STREP Routine 07/16/2023 12:1 8 PM SALESPERSON SHEET MUSIC COVID-19 POC INFLUENZA A/B, COVID-19 ANTIGEN Routine 07/16/2023 12:13 PM SALESPERSON SHEET MUSIC COVID-19 documented in this encounter Results * POCT rapid strep A (07/16/2023 12:18 PM SALESPERSON SHEET MUSIC) Rapid Strep A, POC Negative Negative Swab 07/16/2023 12:1 8 PM SALESPERSON SHEET MUSIC Sari Canales POINT OF CARE TEST ORDERABLES Fi nal Result * (ABNORMAL) POC Influenza A/B, COVID-19 antigen (07/16/2023 12:13 PM SALESPERSON SHEET MUSIC) Influenza A Ag, POC Negative Negative [facility] Influenza B Ag, POC Negative Negative [facility] COVID-19 Ag POC Positive(A) Presumptive Negative, Invalid [facility] Nasal 07/16/2023 12:1 3 PM SALESPERSON SHEET MUSIC Sari Canales POINT OF CARE TEST ORDERABLES Fi nal Result [facility] [address] [place] [address] documented in this encounter Visit Diagnoses Diagnosis COVID-19- Primary documented in this encounter Historical Medications * This list may reflect changes made after this encounter. [id number] 25 mg iron-1 mg -400 mg combo pack Take by mouth added in this encounter Additional Health Concerns Infection Onset Date Last Indicated Resolved Time COVID: Suspected 07/16/2023 07/16/2023 07/16/2023 12:18 PM SALESPERSON SHEET MUSIC COVID19 07/16/2023 07/16/2023 07/26/2023 3:05 AM SALESPERSON SHEET MUSIC documented as of this encounter Care Teams Legal Support Analyst Relationship Specialty Start Date End Date Ross Florian PA [address] [place] [address] PCP - General Family Practice 01/21/23 documented as of this encounter
--- OUTSIDE RECORDS SUMMARY | 2024-06-25 04:15 | XMS_ITS | Encounter Summary ---
Author Organization [facility] HealthCare Address [address] [place] [address] Phone Care Team Providers Care Windows Server Engineer Name Role Phone Unavailable Primary Care Provider Unavailabl e Encounter Details Date Type Department Care Team (Late st Contact Info) Description 10/06/2020 10:30 AM CDT Immunization [address] [id number] [facility] 1st Vaccine [place] Need for vaccination (Primary Dx) Discharge Disposition: Discharged to home or Selfcare Social History Tobacco Use Types Packs/Day Years Used Date Smoking Tobacco: Never Assessed Comments Unknown Sex and Gender Information Value Date Recorded Sex Assigned at Not on file Legal Sex Female 4:03 PM REMEDIATION CONSULTANT Gender Identity Not on file Sexual Orientation Not on file COVID-19 Exposure Response Date Recorded In the last month, have you been in contact with someone who was confirmed or suspected to have Coronavirus / COVID-19? No / Unsure 10/08/2020 10:35 AM CDT documented as of this encounter Patient Instructions * Patient Instructions* Bushra Menon, LEAD QUALITY CONTROL TECHNICIAN - 10/06/2020 10:30 AM CDT You received your first immunization for COVID-19 10/09/2020 at [facility]. Please check the card provided to you with the name of the immunization and the recommended date for your second immunization. You will be able to schedule your second immunization visit from your [facility] [employer] account. Remember, the vaccine does not allow the SARS-CoV-2 virus to replicate and it cannot cause any known illness. No vaccine can cause a patient to develop the disease against which they were vaccinated. It can take up to 14 days after your second dose to gain full immunity. Common side effects that may be experienced after the first COVID-19 immunization include: ??? Soreness at the injection site. ??? Low grade fever These side effects typically go away in a few days. Call your primary healthcare provider if you have any side effects that bother you or do not go away. If you experience a severe allergic reaction, call , or go to the nearest hospital. ??? An ???adverse event?? is any health problem that happens after a shot or other vaccine. For instance, signs of an allergic reaction - itching, hives, shortness of breath or difficulty breathing - should be reported immediately. You may report vaccine side effects to FDA/CDC Vaccine Adverse Event Reporting System (VAERS). The [employer] toll-free number is or report online to https://vaers.hhs.gov/reportevent.html. Smartphone users may choose to enroll in the V-safe tool that uses text messaging and web surveys to check in with people who have been vaccinated to identify potential side effects after COVID-19 vaccination. For more information on how to sign up, visit: www.cdc.gov/vsafe. Wishing you good health, [facility] An appointment will need to be scheduled for you in 28 days to receive the second dose of the COVID-19 vaccination. You will be receiving a scheduling ticket through [employer] so that you can schedule a time that is convenient for you. documented in this encounter Progress Notes * Bushra Menon CMA - 10/06/2020 10:30 AM CDT Kitty is here today for COVID-19 immunization per federal guidelines/written order. See immunization activity for details. Kitty was observed post- immunization for a minimum of 15 minutes without evidence of intolerance. Patient instructions added for patient to review in her [employer] account. . COVID-19 post-vaccination Patient Instructions added to After Visit Summary for patient to review in her [employer] account. documented in this encounter Plan of Treatment Not on file documented as of this encounter Visit Diagnoses Diagnosis Need for vaccination- Primary Need for prophylactic vaccination and inoculation against unspecified single disease documented in this encounter
--- OUTSIDE RECORDS SUMMARY | 2024-06-25 04:15 | XMS_ITS | Encounter Summary ---
Author Organization [facility] Healthcare Address [address] [place] [address] Care Team Providers Care Supervisor Seaming Name Role Phone Ross Florian Primary Care Provider [phone] Reason for Visit * Reason Comments Sore Throat Sore throat started today and a cough for a while, exp to strep, otc cough drops, 15 weeks Encounter Details Date Type Department Care Team ([facility] Contact Info) Description 04/08/2023 6:45 PM CDT Office Visit [facility] [address] [place] [address] Afshan Roa, EXPANDER MACHINE OPERATOR [address] [facility] [address] [place] [address] Sore throat (Primary Dx) Social History Tobacco Use Types Packs/Day Years Used Date Smoking Tobacco: Never Assessed Comments Yes Sex and Gender Information Value Date Recorded Sex Assigned at Not on file Legal Sex Female 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 Gender Identity Not on file Sexual Orientation Not on file documented as of this encounter Last Filed Vital Signs Vital Sign Reading Time Taken Comments Blood Pressure 108/66 04/08/2023 6:41 PM CDT Pulse 99 04/08/2023 6:41 PM CDT Temperature 36.1 ??C (97 ??F) 04/08/2023 6:41 PM CDT Respiratory Rate 16 04/08/2023 6:41 PM CDT Oxygen Saturation 99% 04/08/2023 6:41 PM CDT Inhaled Oxygen Concentration - - Weight 101.2 kg (223 lb) 04/08/2023 6:41 PM CDT Height 165.1 cm (5' 5 ) 04/08/2023 6:41 PM CDT Body Mass Index 37.11 04/08/2023 6:41 PM CDT documented in this encounter Patient Instructions * Patient Instructions* Afshan Roa, EXPANDER MACHINE OPERATOR - 04/08/2023 6:45 PM CDT If you have no improvement or worsening of your symptoms, please follow up with your Primary Care Provider, [facility] and or Emergency Room. I strive to provide you with EXCELLENT service. You may receive a survey after your visit today. If you cannot rate your experience as EXCELLENT, please let us know how we can improve and better meet your needs. Thank you for choosing [facility]! It was my pleasure to see you today, I hope you feel better soon! Afshan Roa EXPERIMENTAL OUTBOARD MOTORS MECHANIC Upper Respiratory Infection: An upper respiratory infection or cold is a viral infection of the nose and throat. It can cause cough, congestion, runny nose, sore throat, and fever. Colds are contagious. Fever medicines can help reduce fever and pain, but the virus cannot be cured by an antibiotic, and cold medicines do not help. The body's immune system will fight off the virus. The cold usually improves in 3 to 7 days, but can cause cough for several weeks. OTC Medication Recommendations: You can use acetaminophen (Tylenol) or ibuprofen (Motrin) for fever or sore throat. Sudafed or pseudoephedrine may decrease sinus congestion. Do not use if you have a history of Hypertension (High Blood pressure). Mucinex for chest congestion. Flonase for runny nose/ear pressure/post nasal drip. Dayquil/Delsym for cough. (Coricidin HBP for cough if hypertensive). Claritin/Zyrtec for post nasal drip/drainage. Home Recommendations: Encourage fluids. Get plenty of rest You might use a cool mist humidifier/vaporizer in your room. Sleeping in a more upright position can be helpful. For infants, the nose can be cleared by using saline nose drops and suctioning with nasal bulb suction. Frequent suctioning can be irritating to infants and is best performed before feedings. Netipot or sinus rinses may be helpful for adults. Call your doctor or return to the emergency department if worse or: 1. Breathing trouble occurs. 2. Color is pale, bluish, or barrett. 3. Child is weak or too sleepy. 4. No urination occurs in 12 hours. 5. Fever lasts for more than 2 days. * Attachments The following attachments cannot be sent through Care Everywhere. * Pharyngitis (AfterCare(R) Instructions(ER/ED)) (Citizen Of [place]) documented in this encounter Progress Notes * Afshan Roa NP - 04/08/2023 6:45 PM CDT Images from the original note were not included. Subjective/Objective Patient ID: Kitty Montilla is a 27 y.o. female. Chief Complaint Sore Throat (Sore throat started today and a cough for a while, exp to strep, otc cough drops, 15 weeks ) 27 year old female patient presents today with complaints sore throat starting today. Patient also reports cough for several weeks. Patient has been using otc cough drops. She is also 15 weeks . Sore Throat Review of Systems HENT: Positive for sore throat. All other systems reviewed and are negative. Physical Exam Constitutional: Appearance: Normal appearance. She is normal weight. She is not ill-appearing. HENT: Head: Normocephalic. Right Ear: Tympanic membrane, ear canal and external ear normal. Left Ear: Tympanic membrane, ear canal and external ear normal. Nose: Nose normal. Mouth/Throat: Mouth: Mucous membranes are moist. Pharynx: Oropharynx is clear. Posterior oropharyngeal erythema present. Tonsils: No tonsillar exudate or tonsillar abscesses. Eyes: Pupils: Pupils are equal, round, and reactive to light. Cardiovascular: Rate and Rhythm: Normal rate and regular rhythm. Pulses: Normal pulses. Heart sounds: Normal heart sounds. Pulmonary: Effort: Pulmonary effort is normal. Breath sounds: Normal breath sounds. Musculoskeletal: General: Normal range of motion. Cervical back: Normal range of motion. Skin: General: Skin is warm and dry. Capillary Refill: Capillary refill takes less than 2 seconds. Neurological: General: No focal deficit present. Mental Status: She is alert and oriented to person, place, and time. Mental status is at baseline. Psychiatric: Mood and Affect: Mood normal. Behavior: Behavior normal. Thought Content: Thought content normal. Judgment: Judgment normal. Vitals: 04/08/23 1841 BP: 108/66 Pulse: 99 Resp: 16 Temp: 36.1 ??C (97 ??F) TempSrc: Temporal SpO2: 99% Weight: 101.2 kg (223 lb) Height: 165.1 cm (5' 5 ) No results found. History reviewed. No pertinent past medical history. No current outpatient medications on file. No Known Allergies Social History Tobacco Use Smoking status: None Smokeless tobacco: None Substance and Sexual Activity Drug use: None Sexual activity: None Alcohol Use: Not on file History reviewed. No pertinent surgical history. Procedures Assessment/Plan Recent Results (from the past 4 hour(s)) POCT rapid strep A Collection Time: 04/08/23 6:47 PM Result Value Ref Range Rapid Strep A, POC Negative Negative Diagnoses and all orders for this visit: Sore throat (Primary) - POCT rapid strep A Patient Education: You have tested negative for strep on rapid testing A Culture may have been sent to the lab- if positive, antibiotics will be ordered. Pharyngitis: A sore throat can be caused by an infection from a virus or bacteria. Sore throat can also be caused by postnasal drip, allergies, and exposure to smoke. The provider will sometimes test the throat with a swab looking for strep bacteria (???strep throat?? ). A sore throat caused by strep will require treatment with an antibiotic. Even if children start feeling better in 24 to 48 hours, complete the entire antibiotic duration recommended by your provider. A viral sore throat lasts up to 5 days and cannot be treated by antibiotics. Another type of sore throat virus, infectious mononucleosis (???mono?? ), can last for 3 weeks in older children. The germs that cause these infections are contagious and can be spread by coughing or sharing drinks or utensils. Medication Recommendations: Give acetaminophen (Tylenol) or ibuprofen (Motrin, Advil) for fever or pain. If post nasal drip, add Zyrtec/Claritin & Flonase. Home Recommendations: Stay hydrated Ice cream/popsicles to improve eating/drinking. This is cold, is soothing, and tastes good. Some patients prefer warm liquids such as soups or broths. Warm salt water gargles for throat irritation 3-4 times a day. Do not share food, drinks, or utensils Frequent hand washing. Follow up with your PCP if you are not getting better. Go to ER if you develop: Drooling or difficulty swallowing occurs. Stiff or swollen neck occurs. Difficulty breathing occurs. Prescribed medicines can't be taken. Rash or swelling occurs after starting use of a new medicine. Fever lasts for more than 2 days. If your voice becomes muffled. Dehydration or decreased Urine Output, very dry mouth or no tears when crying. You may return to work, daycare, or school 24 hours after you are fever free without fever reducingmedications (Tylenol/Motrin). Disposition Treatment plan including expectations, follow up, and return precautions discussed with patient/parent, verbalizes understanding. Medication dosage, use, and potential adverse reactions discussed with patient/parent. Advised to follow up with PCP if symptoms do not resolve as expected or sooner if condition worsens. Signs/symptoms warranting ER evaluation reviewed. Patient and/or guardian was given an opportunity to ask questions, questions answered. Afshan Roa NP documented in this encounter Plan of Treatment Not on file documented as of this encounter Procedures Procedure Name Priority Date/Time Associated Diagnosis Comments POCT RAPID STREP Routine 04/08/2023 6:47 PM CDT Sore throat documented in this encounter Results * Throat culture Throat (04/08/2023 7:02 PM CDT) Report Final Report: No growth of pathogens. ADWOA HOLGUIN Comment:Testing performed by : [facility], [address] [facility], [place]., [address] Throat 04/08/2023 7:02 PM CDT 04/09/2023 12:17 PM CDT Narrative ADWOA HOLGUIN - 04/10/2023 7:46 AM CDT Testing performed by [facility] Microbiology Laboratory ([phone]). us Afshan Roa NP LAB MICROBIOLOGY - GENERAL ORDERABLES Final Result ADWOA HOLGUIN [id number] Department [place] [address] * POCT rapid strep A (04/08/2023 6:47 PM CDT) Rapid Strep A, POC Negative Negative Swab 04/08/2023 6:47 PM CDT Afshan Roa EXPANDER MACHINE OPERATOR POINT OF CARE TEST ORDERAB LES Final Result documented in this encounter Visit Diagnoses Diagnosis Sore throat- Primary Acute pharyngitis Sore throat Acute pharyngitis documented in this encounter Care Teams Supervisor Seaming Relationship Specialty Start Date End Date Ross Florian PA [address] [place] [address] PCP - General Family Practice 01/21/23 documented as of this encounter
--- OUTSIDE RECORDS SUMMARY | 2024-06-25 04:15 | XMS_ITS | Encounter Summary ---
Author Organization [employer] Care Team Providers Care Line Tester Name Role Phone Unavailable Primary Care Provider Unavailabl e Encounter Details Date Type Department Care Team (Latest Contact Info) Description 10/08/2020 Travel Social History Tobacco Use Types Packs/Day Years Used Date Smoking Tobacco: Never Assessed Comments Unknown Sex and Gender Information Value Date Recorded Sex Assigned at Not on file Legal Sex Female 4:03 PM TRANSMISSION SUPERINTENDENT Gender Identity Not on file Sexual Orientation [...]
--- OUTSIDE RECORDS SUMMARY | 2024-06-25 12:44 | XMS_ITS | Encounter Summary ---
Author Organization [employer] Care Team Providers Care Mark Up Designer Name Role Phone Unavailable Primary Care Provider Unavailabl e Encounter Details Date Type Department Care Team (Latest Contact Info) Description 10/08/2020 Travel Social History Tobacco Use Types Packs/Day Years Used Date Smoking Tobacco: Never Assessed Comments Unknown Sex and Gender Information Value Date Recorded Sex Assigned at Not on file Legal Sex Female 4:03 PM SMOKE JUMPER Gender Identity Not on file Sexual Orientation [...]
--- OUTSIDE RECORDS SUMMARY | 2024-06-25 12:44 | XMS_ITS | Encounter Summary ---
Author Organization [email or web address] Care Team Providers Care Flamer After Lasting Name Role Phone Unavailable Primary Care Provider Unavailabl e Encounter Details Date Type Department Care Team (Latest Contact Info) Description 11/01/2020 Travel Social History Tobacco Use Types Packs/Day Years Used Date Smoking Tobacco: Never Assessed Comments Unknown Sex and Gender Information Value Date Recorded Sex Assigned at Not on file Legal Sex Female 4:03 PM BRICK PAVER Gender Identity Not on file Sexual Orientation [...]
--- OUTSIDE RECORDS SUMMARY | 2024-06-25 12:44 | XMS_ITS | Encounter Summary ---
Author Organization [employer] Care Team Providers Care Hide Washer Name Role Phone Ross Florian PAC Primary Care Provider [phone] Encounter Details Date Type Department Care Team (Latest Contact Info) Description 11/03/2020 Travel Social History Tobacco Use Types Packs/Day Years Used Date Smoking Tobacco: Never Assessed Comments Unknown Sex and Gender Information Value Date Recorded Sex Assigned at Not on file Legal Sex Female 4:03 PM GIVER Gender Identity Not on file Sexual Orientation [...] on filedocumented in this encounter Care Teams Hide Washer Relationship Specialty Start Date End Date Ross Florian PAC [address] [place] [address] PCP - General Physician Threading Machine Feeder Automatic 11/03/20 documented as of this encounter
--- OUTSIDE RECORDS SUMMARY | 2024-06-25 12:44 | XMS_ITS | Clinical Summary ---
Author Organization [facility] Address [address] [place] [address] Phone Care Team Providers Care Physician Office Secretary Name Role Phone Ross Florian Primary Care Provider [phone] Immunizations Immunization Administration Dates Next Due Covid-19, Mrna, Lnp-s, PF, 1 00 mcg/0.5 mL Dose (Moderna) 11/03/2020,10/09/2020 Social History Tobacco Use Types Packs/Day Years Used Date Smoking Tobacco: Never Assessed Comments Unknown Sex and Gender Information Value Date Recorded Sex Assigned at Not on file Legal Sex Female 4:03 PM NUCLEAR MEDICAL TECH Gender Identity Not on file Sexual Orientation [...] age to complete this topic Care Teams Physician Office Secretary Relationship Specialty Start Date End Date Ross Florian, [facility] [address] [place] [address] PCP - General Physician Buildings And Grounds Coordinator 11/03/20
--- OUTSIDE RECORDS SUMMARY | 2024-06-25 12:44 | XMS_ITS | Encounter Summary ---
Author Organization [facility] Address [address] [place] [address] Phone Care Team Providers Care Potash Flaker Name Role Phone CaridadRoss diop Primary Care Provider [phone] Encounter Details Date Type Department Care Team (Late st Contact Info) Description 11/03/2020 9:40 AM CDT Immunization [facility] [address] [place] [phone] Sonam Landa MD [address] [place], [place] [id number] Need for vaccination (Primary Dx) Discharge Disposition: Discharged to home or Selfcare Social History Tobacco Use Types Packs/Day Years Used Date Smoking Tobacco: Never Assessed Comments Unknown Sex and Gender Information Value Date Recorded Sex Assigned at Not on file Legal Sex Female 4:03 PM CAN LINE EXAMINER Gender Identity Not on file Sexual Orientation [...] your second immunization for COVID-19 11/03/2020 at [facility]. Please check the card provided to you [...] users may choose to enroll in the [employer] tool that uses text messaging and web [...] disease documented in this encounter Care Teams Potash Flaker Relationship Specialty Start Date End Date Ross Florian PAC [address] [place] [address] PCP - General Physician Cheesemaker 11/03/20 documented as of this encounter
--- OUTSIDE RECORDS SUMMARY | 2024-06-25 12:44 | XMS_ITS | Encounter Summary ---
Author Organization [facility] Address [address] [place] [address] Phone Care Team Providers Care Hat Brusher Machine Name Role Phone Unavailable Primary Care Provider Unavailabl e Reason for Visit * Reason Onset Date Comments COVID-19 05/08/2020 Encounter Details Date Type Department Care Team ([facility] st Contact Info) Description 05/08/2020 Telephone [facility] [address] [place] [address] Provider, None [place] COVID-19 Social History Tobacco Use Types Packs/Day Years Used Date Smoking Tobacco: Never Assessed Comments Unknown Sex and Gender Information Value Date Recorded Sex Assigned at Not on file Legal Sex Female 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 Discontinuing Home Isolation: a) 10 days since [...] sick leave, or to return to work. [facility] is not providing excuse for work notes or return to work notes at this time per CDC recommendations). Went over all guidelines and patient verbalized understanding. NE EQUIPMENT PRESERVATION INSPECTOR documented in this encounter Plan of Treatment Not on file documented as of this encounter Visit Diagnoses Not on filedocumented in this encounter
--- OUTSIDE RECORDS SUMMARY | 2024-06-25 12:44 | XMS_ITS | Encounter Summary ---
Author Organization [facility] Address [address] [place] [address] Phone Care Team Providers Care Studio Director Name Role Phone Unavailable Primary Care Provider Unavailabl e Encounter Details Date Type Department Care Team (Late st Contact Info) Description 10/06/2020 10:30 AM CDT Immunization [address] [address] [facility] 1st Vaccine [place] Need for vaccination (Primary Dx) Discharge Disposition: Discharged to home or Selfcare Social History Tobacco Use Types Packs/Day Years Used Date Smoking Tobacco: Never Assessed Comments Unknown Sex and Gender Information Value Date Recorded Sex Assigned at Not on file Legal Sex Female 4:03 PM BUSINESS OFFICE DIRECTOR Gender Identity Not on file Sexual Orientation Not on file COVID-19 Exposure Response Date Recorded In the last month, have you been in contact with someone who was confirmed or suspected to have Coronavirus / COVID-19? No / Unsure 10/08/2020 10:35 AM CDT documented as of this encounter Patient Instructions * Patient Instructions* Bushra Menon, EXTRUSION FORMER - 10/06/2020 10:30 AM CDT You received your first immunization for COVID-19 10/09/2020 at [facility]. Please check the card provided to you with the name of the immunization and the recommended date for your second immunization. You will be able to schedule your second immunization visit from your [facility] [employer] account. Remember, the vaccine does not allow [...] Vaccine Adverse Event Reporting System (VAERS). The Heavy toll-free number is or report online to [...] will be receiving a scheduling ticket through [employer] so that you can schedule a time [...] added for patient to review in her [employer] account. . COVID-19 post-vaccination Patient Instructions added to After Visit Summary for patient to review in her [employer] account. documented in this encounter Plan of Treatment Not on file documented as of this encounter Visit Diagnoses Diagnosis Need for vaccination- Primary Need for prophylactic vaccination and inoculation against unspecified single disease documented in this encounter
--- OUTSIDE RECORDS SUMMARY | 2024-06-25 12:45 | XMS_ITS | Encounter Summary ---
Author Organization [facility] Healthcare Address [address] [place] [address] Care Team Providers Care Tail Puller Name Role Phone Ross Florian Primary Care Provider [phone] Encounter Details Date Type Department Care Team (Latest Contact Info) Description 04/08/2023 7:02 PM CDT - 04/08/2023 11:59 PM CDT Hospital Encounter [address] [address] Sore throat Discharge Disposition: Discharge to home or self care Social History Tobacco Use Types Packs/Day Years Used Date Smoking Tobacco: Never Assessed Comments Yes Sex and Gender Information Value Date Recorded Sex Assigned at Not on file Legal Sex Female 9:50 AM DATA ADMINISTRATOR Gender Identity Not on file Sexual [...] pathogens. ADWOA HOLGUIN Comment:Testing performed by : [facility], [address] [place]., [address] Throat 04/08/2023 7:02 PM CDT 04/09/2023 12:17 PM CDT Narrative ADWOA HOLGUIN - 04/10/2023 7:46 AM CDT Testing performed by [facility] Microbiology Laboratory ([phone]). Afshan Roa NP LAB MICROBIOLOGY - GENERAL ORDERABLES Final Result ADWO[facility] [id number] [address] Department [place] [address] documented in this encounter Visit Diagnoses Diagnosis Sore throat Acute pharyngitis documented in this encounter Care Teams Tail Puller Relationship Specialty Start Date End Date Ross Florian PA [address] [place] [address] PCP - General Family Practice 01/21/23 documented as of this encounter
--- OUTSIDE RECORDS SUMMARY | 2024-06-25 12:45 | XMS_ITS | Encounter Summary ---
Author Organization [facility] Healthcare Address [address] [place] [address] Care Team Providers Care Signs Cleaner Name Role Phone Ross Florian Primary Care Provider [phone] Reason for Visit * Reason Comments Sore Throat Patient presents tod ay with complaints of sore throat, head ache, body aches, chills. No known fevers. 29 weeks , nothing taken OTC for relief. Encounter Details Date Type Department Care Team ([facility] st Contact Info) Description 07/16/2023 12:00 PM FLIGHT DIRECTOR Office Visit [facility] [place] [address] [place] [id number] Sari Canales NP [address] [facility] [place] [place] [address] COVID-19 (Primary Dx) Social History Tobacco Use Types Packs/Day Years Used Date Smoking Tobacco: Never Assessed Comments Yes Sex and Gender Information Value Date Recorded Sex Assigned at Not on file Legal Sex Female 9:50 AM FLIGHT DIRECTOR Gender Identity Not on file Sexual Orientation Not on file documented as of this encounter Last Filed Vital Signs Vital Sign Reading Time Taken Comments Blood Pressure 110/72 07/16/2023 12:02 PM FLIGHT DIRECTOR Pulse 116 07/16/2023 12:02 PM FLIGHT DIRECTOR Temperature 36.5 ??C (97.7 ??F) 07/16/2023 12:02 PM C Respiratory Rate 18 07/16/2023 12:02 PM FLIGHT DIRECTOR Oxygen Saturation 98% 07/16/2023 12:02 PM FLIGHT DIRECTOR Inhaled Oxygen Concentration - - Weight 104.8 kg (231 lb) 07/16/2023 12:02 PM FLIGHT DIRECTOR Height 165.1 cm (5' 5 ) 07/16/2023 12:02 PM FLIGHT DIRECTOR Body Mass Index 38.44 07/16/2023 12:02 PM FLIGHT DIRECTOR documented in this encounter Patient Instructions * Patient Instructions* Sari Canales NP - 07/16/2023 12:00 PM FLIGHT DIRECTOR Out of isolation on 07/20/2023 Wear a [...] yourself. Get rest and stay hydrated. Take yqac-lxy-gmhlrht medicines to help you feelbetter. Stay in [...] and need to call 911, notify the bread oven operator that you have or think you [...] with someone who is sick visit https://www.cdc .gov/coronavirus/2019-ncov/resdd-zjzb-stzeun/hlyjxs-ff-ojqop-quarters.html For more information on COVID-19 and pets [...] patient with positive or negative results. The [facility] Department will be reaching out to all patients who have a positive test for further discussion and monitoring. The CDC and [facility] have much more information available online. The [...] loosen secretions in the nose and lungs. Arry-usx-yftkfbj cold medicines will not shorten the length of time you???re sick, but they may be helpful for the following symptoms: cough, sore throat, and nasal and sinus congestion. If you take prescription medicines, ask your healthcare provider or pharmacist which lmnx-pie-ggjtyop medicines are safe to use. (Note: Don't [...] and to keep mucous thin. Use an qnxb-wmt-xawdobc cough medicine such as Delsym or Robitussin. [...] to get COVID tested unless showing symptoms Rrop-qii-Alannma Medications Safe to Take During Pain Relief [...] questions on medications that are safe in HT DIRECTOR HT DIRECTOR documented in this encounter Progress Notes * [...] tenderness or frontal sinus tenderness. Mouth/Throat: Lips: Nixon. Mouth: Mucous membranes are moist. Pharynx: Oropharynx [...] ask questions, questions answered. Sari Canales NP HT DIRECTOR documented in this encounter Plan of Treatment Not on file documented as of this encounter Procedures Procedure Name Priority Date/Time Associated Diagnosis Comments POCT RAPID STREP Routine 07/16/2023 12:1 8 PM FLIGHT DIRECTOR COVID-19 POC INFLUENZA A/B, COVID-19 ANTIGEN Routine 07/16/2023 12:13 PM FLIGHT DIRECTOR COVID-19 documented in this encounter Results * POCT rapid strep A (07/16/2023 12:18 PM FLIGHT DIRECTOR) Rapid Strep A, POC Negative Negative Swab 07/16/2023 12:1 8 PM FLIGHT DIRECTOR Sari Canales POINT OF CARE TEST ORDERABLES Fi nal Result * (ABNORMAL) POC Influenza A/B, COVID-19 antigen (07/16/2023 12:13 PM FLIGHT DIRECTOR) Influenza A Ag, POC Negative Negative [facility] Influenza B Ag, POC Negative Negative [facility] COVID-19 Ag POC Positive(A) Presumptive Negative, Invalid [facility] Nasal 07/16/2023 12:1 3 PM FLIGHT DIRECTOR Sair Canales POINT OF CARE TEST ORDERABLES Fi nal Result [facility] [address] [place] [address] documented in this encounter Visit Diagnoses Diagnosis COVID-19- Primary documented in this encounter Historical Medications * This list may reflect changes made after this encounter. [id number] 25 mg iron-1 mg -400 mg combo pack Take by mouth added in this encounter Additional Health Concerns Infection Onset Date Last Indicated Resolved Time COVID: Suspected 07/16/2023 07/16/2023 07/16/2023 12:18 PM FLIGHT DIRECTOR COVID19 07/16/2023 07/16/2023 07/26/2023 3:05 AM FLIGHT DIRECTOR documented as of this encounter Care Teams Signs Cleaner Relationship Specialty Start Date End Date Ross Florian PA [address] [place] [address] PCP - General Family Practice 01/21/23 documented as of this encounter
--- OUTSIDE RECORDS SUMMARY | 2024-06-25 12:45 | XMS_ITS | Referral Summary ---
Author Organization [facility] [address] Address [address] [place] [address] Phone Care Team Providers Care Senior Safety Management Consultant Name Role Phone Ross Florian Primary Care Provider [phone] Encounters Date Type Department Care Team Description 04/24/2024 6:30 PM DISTILLERY SUPERVISOR Office Visit [facility] [place] [address] [place] [address] Amanda Stone NP Dermatitis (Primary Dx); Viral URI from Last 3 Months Allergies No known active allergies Medications [id number] [id number] 25 mg iron-1 mg -400 mg [...] on file Legal Sex Female 9:50 AM DISTILLERY SUPERVISOR Gender Identity Not on file Sexual Orientation Not on file Last Filed Vital Signs Vital Sign Reading Time Taken Comments Blood Pressure 112/74 04/24/2024 6:28 PM DISTILLERY SUPERVISOR Pulse 86 04/24/2024 6:28 PM DISTILLERY SUPERVISOR Temperature 37 ??C (98.6 ??F) 04/24/2024 6:28 PM DISTILLERY SUPERVISOR Respiratory Rate 18 04/24/2024 6:28 PM DISTILLERY SUPERVISOR Oxygen Saturation 98% 04/24/2024 6:28 PM DISTILLERY SUPERVISOR Inhaled Oxygen Concentration - - Weight 108 kg (238 lb) 04/24/2024 6:28 PM DISTILLERY SUPERVISOR Height 165.1 cm (5' 5 ) 07/16/2023 12:02 PM DISTILLERY SUPERVISOR Body Mass Index 39.61 07/16/2023 12:02 PM DISTILLERY SUPERVISOR Plan of Treatment Not on file Insurance [employer] ACCESS CHOICE Member Subscriber Plan / Payer (Ef fective 2023-Present) Name:Kitty Montilla Relation to Subscriber:Spouse Name:ELADIASAURAV BRANDON Date of :1993 (Home) Address: [address] [place] [address] Payer ID:[id number] (NAIC) Type:BC ALLIANCE Address: [facility] [address] [place] [id number] Care Teams Senior Safety Management Consultant Relationship Specialty Start Date End Date Ross Florian PA [address] [place] [address] PCP - General Family Practice 01/21/23
--- OUTSIDE RECORDS SUMMARY | 2024-06-25 12:45 | XMS_ITS | Encounter Summary ---
Author Organization [facility] Healthcare Address [address] [place] [address] Care Team Providers Care Progressive Die Maker Name Role Phone Unavailable Primary Care Provider Unavailabl e Encounter Details Date Type Department Care Team (Late st Contact Info) Description 2007 8:24 PM CDT - 2007 11:05 PM CDT Hospital Encounter [facility] Garrick Bah MD [address] [place] [address] Nneka Jules Social History Tobacco Use Types Packs/Day Years Used Date Smoking Tobacco: Never Assessed Comments Unknown Sex and Gender Information Value Date Recorded Sex Assigned at Not on file Legal Sex Female 9:50 AM HOUSEMAID Gender Identity Not on file Sexual Orientation Not on file documented as of this encounter Plan of Treatment Not on file documented as of this encounter Visit Diagnoses Not on filedocumented in this encounter
--- OUTSIDE RECORDS SUMMARY | 2024-06-25 12:45 | XMS_ITS | Encounter Summary ---
Author Organization [facility] Healthcare Address [address] [place] [address] Care Team Providers Care Facility Practice Specialist Name Role Phone Ross Florian Primary Care Provider Reason for Visit * Reason Comments Rash [...] st Contact Info) Description 04/24/2024 6:30 PM BOTTLING LINE OPERATOR Office Visit [facility] Medical Group [facility] [place] [address] [place] [phone] Amanda Stone NP [address] [facility] [place] [address] Dermatitis (Primary Dx); Viral URI Social History Tobacco Use Types Packs/Day Years Used Date Smoking Tobacco: Never Assessed Comments Unknown Sex and Gender Information Value Date Recorded Sex Assigned at Not on file Legal Sex Female 9:50 AM BOTTLING LINE OPERATOR Gender Identity Not on file Sexual Orientation Not on file documented as of this encounter Last Filed Vital Signs Vital Sign Reading Time Taken Comments Blood Pressure 112/74 04/24/2024 6:28 PM BOTTLING LINE OPERATOR Pulse 86 04/24/2024 6:28 PM BOTTLING LINE OPERATOR Temperature 37 ??C (98.6 ??F) 04/24/2024 6:28 PM BOTTLING LINE OPERATOR Respiratory Rate 18 04/24/2024 6:28 PM BOTTLING LINE OPERATOR Oxygen Saturation 98% 04/24/2024 6:28 PM BOTTLING LINE OPERATOR Inhaled Oxygen Concentration - - Weight 108 kg (238 lb) 04/24/2024 6:28 PM BOTTLING LINE OPERATOR Height - - Body Mass Index 39.61 07/16/2023 12:02 PM BOTTLING LINE OPERATOR documented in this encounter Patient Instructions * Patient Instructions* Amanda Stone TNT POWDER WORKER - 04/24/2024 6:30 PM BOTTLING LINE OPERATOR Research has proven that unless you are [...] same utensils or glass, and use hand criminology teacher before touching people or common surfaces. If [...] severe headaches, changes in vision, or seizures. LING LINE OPERATOR documented in this encounter Ordered Prescriptions Prescription [...] office note has been partially dictated using [employer] software, and as a result portions of the record may have been created with this software. Occasional wrong-word or 'ntkxh-w-zsue' substitutions may have occurred due to the inherent limitations of voice recognition software. Read the chartcarefully and recognize, using context, where substitutions have occurred Amanda Stone NP LING LINE OPERATOR documented in this encounter Plan of Treatment Not on file documented as of this encounter Visit Diagnoses Diagnosis Dermatitis- Primary Contact dermatitis and other eczema, due to unspecified cause Viral URI Acute upper respiratory infections of unspecified site documented in this encounter Care Teams Facility Practice Specialist Relationship Specialty Start Date End Date Ross Florian PA [address] [place] [address] PCP - General Family Practice 01/21/23 documented as of this encounter
--- OUTSIDE RECORDS SUMMARY | 2024-06-25 12:45 | XMS_ITS | Encounter Summary ---
Author Organization [facility] Healthcare Address [address] [place] [address] Care Team Providers Care Crm Specialist Name Role Phone Ross Florian Primary Care Provider [phone] Encounter Details Date Type Department Care Team (Late st Contact Info) Description 04/10/2023 Telephone [facility] [place] [address] [place] [address] Nat Rivera MA Social History Tobacco Use Types Packs/Day Years Used Date Smoking Tobacco: Never Assessed Comments Yes Sex and Gender Information Value Date Recorded Sex Assigned at Not on file Legal Sex Female 9:50 AM DATABASE MANAGER Gender Identity Not on file Sexual [...] on filedocumented in this encounter Care Teams Crm Specialist Relationship Specialty Start Date End Date Ross Florian PA [address] [place] [address] PCP - General Family Practice 01/21/23 documented as of this encounter
--- OUTSIDE RECORDS SUMMARY | 2024-06-25 12:45 | XMS_ITS | Clinical Summary ---
Author Organization [facility] [address] Address [address] [place] [address] Phone Care Team Providers Care Boiler House Operator Name Role Phone Ross Florian Primary Care Provider [phone] Allergies No known active allergies Medications [id number] ic-om3 25 mg iron-1 mg -400 mg combo pack Take by mouth Ac tive triamcinolone (KENALOG) 0.1 % creamIndication s:Dermatitis Apply topically 2 (two) times a day 30 g 4 Active Active Problems No known active problems Encounters Date Type Department Care Team Description 04/24/2024 6:30 PM BILINGUAL KINDERGARTEN TEACHER Office Visit [facility] Medical Group [facility] [place] [address] [place] [address] Amanda Stone NP Dermatitis (Primary Dx); Viral URI from Last 3 Months Social History Tobacco Use Types Packs/Day Years Used Date Smoking Tobacco: Never Assessed Comments Unknown Sex and Gender Information Value Date Recorded Sex Assigned at Not on file Legal Sex Female 9:50 AM BILINGUAL KINDERGARTEN TEACHER Gender Identity Not on file Sexual Orientation Not on file Obstetrics History Para Term AB IAB SAB Ectopic Multiple Livin g Live Births 1 Date Outcome GA Total Labor Labor/2nd/3rd Weight Sex Type Anes PTL Ally A1 A5 Name Clin Last Filed Vital Signs Vital Sign Reading Time Taken Comments Blood Pressure 112/74 04/24/2024 6:28 PM BILINGUAL KINDERGARTEN TEACHER Pulse 86 04/24/2024 6:28 PM BILINGUAL KINDERGARTEN TEACHER Temperature 37 ??C (98.6 ??F) 04/24/2024 6:28 PM BILINGUAL KINDERGARTEN TEACHER Respiratory Rate 18 04/24/2024 6:28 PM BILINGUAL KINDERGARTEN TEACHER Oxygen Saturation 98% 04/24/2024 6:28 PM BILINGUAL KINDERGARTEN TEACHER Inhaled Oxygen Concentration - - Weight 108 kg (238 lb) 04/24/2024 6:28 PM BILINGUAL KINDERGARTEN TEACHER Height 165.1 cm (5' 5 ) 07/16/2023 12:02 PM BILINGUAL KINDERGARTEN TEACHER Body Mass Index 39.61 07/16/2023 12:02 PM BILINGUAL KINDERGARTEN TEACHER Plan of Treatment Health Maintenance Due Date [...] patient's age to complete this topic Insurance [facility] ACCESS CHOICE Care Teams Boiler House Operator Relationship Specialty Start Date End Date Ross Florian PA [address] [place] [address] PCP - General Family Practice 01/21/23
--- OUTSIDE RECORDS SUMMARY | 2024-06-25 12:45 | XMS_ITS | Encounter Summary ---
Author Organization [facility] Healthcare Address [address] [place] [address] Care Team Providers Care Sustainable Design Coordinator Name Role Phone Ross Florian Primary Care Provider Reason for Visit * Reason Comments Sore Throat Sore throat started today and a cough for a while, exp to strep, otc cough drops, 15 weeks Encounter Details Date Type Department Care Team ([facility] Contact Info) Description 04/08/2023 6:45 PM CDT Office Visit [facility] [place] [address] [place] [address] Afshan Roa, SECRETARY TO BOARD OF COMMISSIONERS [address] [facility] [address] [place] [address] Sore throat (Primary Dx) Social History Tobacco Use Types Packs/Day Years Used Date Smoking Tobacco: Never Assessed Comments Yes Sex and Gender Information Value Date Recorded Sex Assigned at Not on file Legal Sex Female 9:50 AM PREPRESS MANAGER Gender Identity Not on file Sexual [...] encounter Patient Instructions * Patient Instructions* Afshan oRa, SECRETARY TO BOARD OF COMMISSIONERS - 04/08/2023 6:45 PM CDT If you have no improvement or worsening of your symptoms, please follow up with your Primary Care Provider, [facility] Care and or Emergency Room. I strive to provide you with EXCELLENT service. You may receive a survey after your visit today. If you cannot rate your experience as EXCELLENT, please let us know how we can improve and better meet your needs. Thank you for choosing [facility]! It was my pleasure to see you today, I hope you feel better soon! Afshan Roa SCRIBING MACHINE OPERATOR Upper Respiratory Infection: An upper respiratory infection [...] through Care Everywhere. * Pharyngitis (AfterCare(R) Instructions(ER/ED)) (Micronesian) documented in this encounter Progress Notes * [...] pathogens. ADWOA HOLGUIN Comment:Testing performed by : [facility], [address] [facility], [place]., [address] Throat 04/08/2023 7:02 PM CDT 04/09/2023 12:17 PM CDT Narrative ADWOA HOLGUIN - 04/10/2023 7:46 AM CDT Testing performed by [facility] Microbiology Laboratory ([phone]). us Afshan Roa NP LAB MICROBIOLOGY - GENERAL ORDERABLES Final Result ADWOA HOLGUIN [address] [place] [address] * POCT rapid strep A (04/08/2023 6:47 PM CDT) Rapid Strep A, POC Negative Negative Swab 04/08/2023 6:47 PM CDT Afshan Roa SECRETARY TO BOARD OF COMMISSIONERS POINT OF CARE TEST ORDERAB LES Final Result documented in this encounter Visit Diagnoses Diagnosis Sore throat- Primary Acute pharyngitis Sore throat Acute pharyngitis documented in this encounter Care Teams Sustainable Design Coordinator Relationship Specialty Start Date End Date Ross Florian PA [address] [place] [address] PCP - General Family Practice 01/21/23 documented as of this encounter
== END 2024-06-18 10:09 | disposition left against medical advice (07) ==
LOC: ANHED 10:02
PROVIDERS: PCP Physician Assistant
DX: N93.9 Abnormal uterine and vaginal bleeding, unspecified (principal)
CPT/HCPCS: 99199